=== PATIENT | female | born 1995 | race Two or more races ===

== ENCOUNTER 2025-02-22 12:00 | Inpatient (IN) | payer OTHER ==
[~2025-02-22] VITALS: Ht 162.6 cm; Wt 58.0 kg
--- NOTE | 2025-02-22 12:21 | ED.PDOC ---
GI ASSESSMENT HPI Comments 29 y/o F KYLIE, presents to the ED for CC of abdominal pain. EMS reports, patient is coming from home where she c/o suprapubic abdominal pain that radiates to her back with associated bright bloody stools x1day. 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 En route to the ED, patient was given 1g of Tylenol and 4mg of Zofran IV. Upon arrival patient, reports slight relief with medications now rating her pain a 4/10 on the pain scale. Patient denies dizziness, weakness, or urinary symptoms. No other symptoms or modifying factors are present at this time. Chief Complaint: Abdominal Pain Time Seen by MD: 12:00 Reviewed Notes: Nurses Notes, Missile Tracking Technician Notes, Medications, Allergies Allergies: Coded Allergies: Sumatriptan (Verified Allergy, Unknown, 02/22/25) Information Source: Patient, Emergency Med Personnel Mode of Arrival: EMS Timing: Days Duration: Since onset Prehospital treatment: None Vomitus: Watery Stool: Other (bloody) Severity: Moderate Recent: None Recent Hx of: None Pain Location: Suprapubic Modifying Factors: Nothing Associated sign and symptoms: Nausea, Vomiting, Abdominal Pain, Blood in Stool Past Medical History PAST MEDICAL HISTORY: Denies Surgical History: Cholecystectomy [employer] History: Denies all [employer] Hx Family History Family History: Family hx of DM, Family hx of Cancer Social History Smoker: Non-Smoker Alcohol: Denies ETOH Use Drugs: Marijuana Lives In: Home Constitutional: denies: chills, diaphoresis, fatigue, fever, malaise, sweats, weakness, others EENTM: denies: blurred vision, double vision, ear bleeding, ear discharge, ear drainage, ear pain, ear ringing, eye pain, eye redness, hearing loss, mouth pain, mouth swelling, nasal discharge, nose bleeding, nose congestion, nose pain, photophobia, tearing, throat pain, throat swelling, voice changes, others Respiratory: denies: cough, hemoptysis, orthopnea, SOB at rest, shortness of breath, SOB with excertion, stridor, wheezing, others Cardiovascular: denies: chest pain, dizzy spells, diaphoresis, Dyspnea on exertion, edema, irregular heart beat, left arm pain, lightheadedness, palpitations, PND, syncope, others Gastrointestinal: reports: abdominal pain, nausea, vomiting, others (bloody s tools); denies: abdomen distended, blood streaked bowels, constipated, diarrhea, dysphagia, difficulty swallowing, hematemesis, melena, poor appetite, poor fluid intake, rectal bleeding, rectal pain Genitourinary: denies: abnormal vagina bleeding, burning, dyspareunia, dysuria, flank pain, frequency, hematuria, incontinence, pain, , vagina discharge, urgency, others Neurological: denies: dizziness, fainting, headache, left sided numbness, left sided weakness, numbness, paresthesia, pre-existing deficit, right sided numbness, right sided weakness, seizure, speech problems, tingling, tremors, weakness, others Musculoskeletal: denies: back pain, gout, joint pain, joint swelling, muscle pa in, muscle stiffness, neck pain, others Integumetry: denies: bruises, change in color, change in hair/nails, dryness, laceration, lesions, lumps, rash, wounds, others Allergic/Immunocompromised: denies: Difficulty Healing, Frequent Infections, Hives, Itching, others Hematologic/Lymphatic: denies: anemia, blood clots, easy bleeding, easy bruising, swollen glands, others Endocrine: denies: excessive hunger, excessive sweating, excessive thirst, excessive urination, flushing, intolerance to cold, intolerance to heat, unexplained weight gain, unexplained weight loss, others Psychiatric: denies: anxiety, bipolar disorder, depression, hopeless, panic disorder, schizophrenia, sleepless, suicidal, others All Other Systems: Reviewed and Negative Physical Exam General Appearance: Moderate Distress HEENT: Pale Conjuntivae (L), Pale Conjuntivae (R), Pharynx Normal, TMs Normal Neck: Full Range of Motion, Non-Tender, Normal, Normal Inspection Respiratory: Chest Non-Tender, Lungs Clear, No Accessory Muscle Use, No Respiratory Distress, Normal Breath Sounds Cardiovascular: No Edema, No JVD, No Murmur, No Gallop, Normal Peripheral Pulses, Regular Rate/Rhythm Breast Exam: Deferred Gastrointestinal: No Organomegaly, No Pulsatile Mass, Normal Bowel Sounds, Soft, Suprapubic, Tenderness Genitalia: Deferred Pelvic: Deferred Rectal: Deferred Extremities: No calf tenderness, Normal capillary refill, Normal inspection, Normal range of motion, Non-tender, No pedal edema Musculoskeletal : Apperance: Normal Neurologic: Alert, onion tier II-XII nml as Tested, Motor Weakness, Normal Affect, Normal Mood, No Sensory Deficits Cerebellar Function: Normal Reflexes: Normal Skin: Dry, Normal Color, Warm Lymphatic: No Adenopathy Was a procedure done? Was a procedure done?: No GI differential Dx Differential Diagnosis: Diverticular disease, Gastritis/PUD, Gastroenteritis, GI hemorrhage, Inflammatory BD, Dehydration, Drug toxicity X-Ray, Labs, Meds, VS Vital Signs Date Time Temp Pulse Resp B/P (MAP) Pulse Ox O2 Delivery O2 Flow Rate FiO2 02/22/25 13:07 66 18 105/55 02/22/25 12:32 74 18 112/63 (79) 98 02/22/25 12:32 74 18 98 Room Air* 0 21 02/22/25 12:31 74 18 112/63 02/22/25 12:13 98.6 63 18 119/75 98 98.6 Lab Test 02/22/25 12:26 02/22/25 12:23 Range/Units White Blood Count 17.5 H 4.4-10.8 10^3/uL Red Blood Count 5.07 4.0-5.20 10^6/uL Hemoglobin 14.2 12.2-16.2 g/dL Hematocrit 42.7 36.0-46.0 % Mean Corpuscular Volume 84.1 80.0-100.0 fL Mean Corpuscular Hemoglobin 28.1 28.0-32.0 pg Mean Corpuscular Hemoglobin Concent 33.3 32.0-36.0 g/dL Red Cell Distribution Width 14.3 11.8-14.3 % Platelet Count 336 140-450 10^3/uL Mean Platelet Volume 8.1 6.9-10.8 fL Neutrophils (%) (Auto) 90.4 H 37.0-80.0 % Lymphocytes (%) (Auto) 4.0 L 10.0-50.0 % Monocytes (%) (Auto) 5.3 0.0-12.0 % Eosinophils (%) (Auto) 0.1 0.0-7.0 % Basophils (%) (Auto) 0.2 0.0-2.0 % Neutrophils # (Auto) 15.8 H 1.6-8.6 10 ^3/uL Lymphocytes # (Auto) 0.7 0.4-5.4 10 ^3/uL Monocytes # (Auto) 0.9 0-1.3 10 ^3/uL Eosinophils # (Auto) 0 0-0.8 10 ^3/uL Basophils # (Auto) 0 0-0.2 10 ^3/uL Nucleated Red Blood Cells 0.0 % Prothrombin Time 11.3 9.3-11.8 sec Prothrombin Time INR 1.07 0.9-1.15 Activated Partial Thromboplast Time 25.1 24.5-34.5 SEC Sodium Level 147 H 136-145 mmol/L Potassium Level 3.1 L 3.5-5.1 mmol/L Chloride Level 112 H 98-107 mmol/L Carbon Dioxide Level 17 L 20-31 mmol/L Anion Gap 18 H 5-15 Blood Urea Nitrogen 13 9-23 mg/dL Creatinine 1.04 H 0.550-1.02 mg/dL Glomerular Filtration Rate Calc 75 >90 mL/min BUN/Creatinine Ratio 12.5 10.0-20.0 Serum Glucose 142 H 74-106 mg/dL Calcium Level 8.7-10.4 mg/dL Total Bilirubin 0.7 0.2-1.0 mg/dL Aspartate Amino Transferase (AST) 14 13-40 U/L Alanine Aminotransferase (ALT) 11 7-40 U/L Alkaline Phosphatase 49 46-116 U/L Total Protein 7.6 5.7-8.2 g/dL Albumin 4.7 3.2-4.8 g/dL Urine Color Light-yellow Yellow Urine Clarity Clear Clear Urine pH 8.0 5.0-9.0 Urine Specific [place] 1.018 1.001-1.035 Urine Protein Negative Negative Urine Ketones 2+ H Negative Urine Blood 1+ H Negative /uL Urine Nitrite Negative Negative Urine Bilirubin Negative Negative Urine Urobilinogen Normal Negative mg/dL Urine Leukocyte Esterase Negative Negative /uL Urine RBC 5 0 - 4 /hpf Urine Microscopic WBC 9 H 0-5 /HPF Urine Squamous Epithelial Cells Few <5 /hpf Urine Bacteria None seen None Seen /hpf Urine Mucus Few None Seen Urine Glucose Normal Normal mg/dL Current Medications Medications (Trade) Dose Ordered Sig/Nohemy Route Start Time Stop Time Status Last Admin Morphine Sulfate 2 mg ONCE ONCE IV 02/22/25 12:15 02/22/25 12:16 DC 02/22/25 12:31 Sodium Chloride 500 ml @ 500 mls/hr Q1H ONCE IVB 02/22/25 12:15 02/22/25 13:14 DC 02/22/25 12:32 Prochlorperazine Edisylate (Compazine Inj) 10 mg ONCE ONCE IV 02/22/25 12:15 02/22/25 12:16 DC 02/22/25 12:32 CT ABD PEL: IMPRESSION: 1. A couple Punctate left renal calculi. No hydronephrosis. IV Hep-Lock was established The patient was given morphine IV push The patient was also given Compazine 10 mg IV push The patient has been bolused with a normal saline The patient's urine test is negative for infection [place] an [place] [address] The rest of the CBC is within normal limits The chemistry panel shows hypokalemia at 3.1 The patient is being given potassium at this time The patient will be admitted to the hospitalist Images Reviewed?: Images reviewed and evaluated by me Time of 1ST Reevaluation: 12:30 Reevaluation 1ST: Unchanged Patient Education/Counseling: Diagnosis, Treatment Family Education/Counseling: No Family Present SEPSIS Sepsis Screen Physician Orders Ct Ab Pel Wo Con-No Oral Or Iv (02/22/25 12:08) Heplock Iv (02/22/25 12:08) Vital Signs Date Time Temp Pulse Resp B/P (MAP) Pulse Ox O2 Delivery O2 Flow Rate FiO2 02/22/25 13:07 66 18 105/55 02/22/25 12:32 74 18 112/63 (79) 98 02/22/25 12:32 74 18 98 Room Air* 0 21 02/22/25 12:31 74 18 112/63 02/22/25 12:13 98.6 63 18 119/75 98 98.6 Laboratory Tests Test 02/22/25 12:26 White Blood Count 17.5 10^3/uL (4.4-10.8) H Medications Medications Dose Ordered Sig/Nohemy Route Start Time Stop Time Status Last Admin Dose Admin Morphine Sulfate 2 mg ONCE ONCE IV 02/22/25 12:15 02/22/25 12:16 DC 02/22/25 12:31 Prochlorperazine Edisylate 10 mg ONCE ONCE IV 02/22/25 12:15 02/22/25 12:16 DC 02/22/25 12:32 Sodium Chloride 500 ml @ 500 mls/hr Q1H ONCE IVB 02/22/25 12:15 02/22/25 13:14 DC 02/22/25 12:32 Departure 1 Departure Time of Disposition: 14:25 Impression: Primary Impression: Intractable abdominal pain Additional Impressions: Lower GI bleed Hypokalemia Disposition: ADMITTED INPATIENT Admit to: Med Surg Condition: Fair Critical Care Note Critical Care Time?: No Stability Stability form required: No Heart Score Heart Score: Heart Score Response (Comments) Value History N/A 0 EKG N/A 0 Age N/A 0 Risk Factors N/A 0 Troponin N/A 0 Total 0 I personally scribed for TOMMIE FUNG MD ([email or web address]) on 02/22/25 at 12:21. Electronically submitted by Stefanie Martinez ([email or web address]). I personally scribed for TOMMIE FUNG MD ([email or web address]) on 02/22/25 at 14:01. Electronically submitted by Stefanie Martinez ([email or web address]). TOMMIE FUNG MD Feb 22, 2025 12:21
[2025-02-22] MEDS: MORPHINE SULFATE 4 MG/ML SYR/VIAL IV ONE (12:31)
[2025-02-22 12:32] VITALS: PULSE 74; RESP 18; O2SAT 98
[2025-02-22] MEDS: SODIUM CHLORIDE 0.9% 500 ML IVB ONE (12:32)
[2025-02-22] MEDS: PROCHLORPERAZINE EDISYLATE 5 MG/ML 2ML VIAL IV ONE (12:32)
[2025-02-22 12:50] LABS: Hematocrit 42.7 % (36.0-46.0); Hemoglobin 14.2 g/dL (12.2-16.2); Mean Corpuscular Hemoglobin 28.1 pg (28.0-32.0); Mean Corpuscular Volume 84.1 fL (80.0-100.0); Nucleated Red Blood Cells % 0.0 %
[2025-02-22 13:05] LABS: INR 1.07 (0.9-1.15); Partial Thromboplastin Time 25.1 SEC (24.5-34.5); Prothrombin Time 11.3 sec (9.3-11.8)
[2025-02-22 13:07] LABS: Alanine Aminotransferase 11 U/L (7-40); Albumin 4.7 g/dL (3.2-4.8); Alkaline Phosphatase 49 U/L (46-116); Anion Gap 18 (5-15); BUN/Creatinine Ratio 12.5 (10.0-20.0); Blood Urea Nitrogen 13 mg/dL (9-23); Total Protein 7.6 g/dL (5.7-8.2)
[2025-02-22 13:08] LABS: Bilirubin, Total 0.7 mg/dL (0.2-1.0); Carbon Dioxide 17 mmol/L (20-31); Chloride 112 mmol/L (98-107); Glucose 142 mg/dL (74-106); Potassium 3.1 mmol/L (3.5-5.1); Sodium 147 mmol/L (136-145)
[2025-02-22 13:27] LABS: Urine Protein, UAD Negative (Negative)
--- NOTE | 2025-02-22 13:41 | DVH ---
EXAM DESCRIPTION: CT CT AB PEL WO CON-NO ORAL OR IV CLINICAL HISTORY: pain COMPARISON: None TECHNIQUE: CT abdomen and pelvis without IV contrast was performed. Coronal and sagittal MPR images were generated.CTDI/ DLP = 6.47 / 335.96 Dose reduction technique with one or more of the following methods was performed: Automated exposure control, adjustment of the mA and/or kV according to patient size, use of iterative reconstruction technique FINDINGS: Lower chest: Clear lung bases. Liver: Homogenous in attenuation. . Biliary: Status post cholecystectomy. No biliary ductal dilatation. Pancreas: No fat stranding or focal lesion. Spleen: Normal in size.. Adrenal glands: No nodularity. Kidneys: A couple Punctate left renal calculi. No hydroureteronephrosis. . Bladder: No bladder wall thickening. Reproductive organs: Normal. Bowel: No bowel wall thickening or dilatation. Normal appendix.. Peritoneum: No free fluid. No free air. Vessels: Normal caliber abdominal aorta. . Lymph nodes: No suspicious lymph nodes. Soft tissues: Unremarkable. . Osseous structures: No acute fracture or subluxation. No suspicious osseous lesions. IMPRESSION: 1. A couple Punctate left renal calculi. No hydronephrosis.
[2025-02-22] MEDS: SODIUM CHLORIDE 0.9% 1,000 ML IV ONE (15:36)
[2025-02-22] MEDS: POTASSIUM CHL 20MEQ/100ML 100 ML IV ONE (15:52)
[2025-02-22] MEDS ORDERED: NITROGLYCERIN 0.4 MG SL TAB SL PRN (16:30)
[2025-02-22] MEDS ORDERED: DOCUSATE SOD 100 MG CAP PO PRN (16:30)
[2025-02-22] MEDS ORDERED: ONDANSETRON HCL 4 MG/2 ML VIAL IV PRN (16:30)
[2025-02-22] MEDS ORDERED: MORPHINE SULFATE INJ 2 MG/ml SYRG IV PRN (16:30)
--- NOTE | 2025-02-22 17:03 | DVHHP2 ---
History of Present Illness History of Present Illness 29-year-old female with past medical history of gallbladder surgery and fibromyalgia, currently undergoing evaluation for lupus, presents with complaints of worsening abdominal pain. She reports that the abdominal pain began last night and progressed to severe suprapubic pain. The patient states she has vomited more than 10 times since onset and has had three episodes of bloody stool without clots. She denies any history of colonoscopy, chest pain, or shortness of breath. Labs in the ED were notable for leukocytosis with WBC of 17.5, sodium 147, potassium 3.1, chloride 111, CO2 17, anion gap 18, and creatinine 1.04. She was given IV fluids and potassium supplementation. UA was positive for ketones. CT scan of the pelvis revealed a left kidney stone without obstruction. Patient admits to nightly marijuana use. With these findings, the patient will be admitted for management of acute intractable vomiting, dehydration, lower gastrointestinal bleeding, and electrolyte abnormalities. She is hemodynamically stable and will be monitored with serial labs and supportive care. Past Medical History See HPI above Past Surgical History See HPI above Family History Reviewed, non-contributory to the management of this case. Past Social History Patient states he smoked marijuana every night denies drug or alcohol use Review of Systems Constitutional: No: Fever, Chills, Sweats, Weakness, Malaise, Other Eyes: No: Pain, Vision change, Conjunctivae inflammation, Eyelid inflammation, Other, Redness ENT: No: Ear pain, Ear discharge, Nose pain, Nose discharge, Nose congestion, Mouth pain, Mouth swelling, Throat pain, Throat swelling, Other Respiratory: No: Cough, Dry, Shortness of breath, SOB with excertion, Wheezing, Hemoptysis, Pleuritic Pain, Sputum, Wheezing, Other Cardiovascular: No: Chest Pain, Palpitations, Orthopnea, Paroxysmal Noc. Dyspnea, Edema, Lt Headedness, Other Gastrointestinal: Nausea, Vomiting, Abdominal Pain; No: Diarrhea, Constipation, Melena, Hematochezia, Other Genitourinary: No Dysuria, No Frequency, No Incontinence, No Hematuria, No Retention, No Other Musculoskeletal: No: other, neck pain, shoulder pain, arm pain, back pain, hand pain, leg pain, foot pain Skin: No: Rash, Lesions, Jaundice, Bruising, Other Neurological: No: Weakness, Numbness, Incoordination, Change in speech, Confusion, Seizures, Other Allergies: Coded Allergies: Shellfish Allergy (Verified Allergy, Unknown, 02/22/25) Sumatriptan (Verified Allergy, Unknown, 02/22/25) Exam Vital Signs Vital Signs Date Time Temp Pulse Resp B/P (MAP) Pulse Ox O2 Delivery O2 Flow Rate FiO2 02/22/25 16:16 98.1 77 14 94/54 (67) 99 98.1 02/22/25 12:32 Room Air* 0 21 General Appearance: Alert, Oriented X3, Cooperative, No acute distress HEENT: Atraumatic, PERRLA, EOMI, Mucous membr. moist/pink Respiratory: Clear to auscultation, Normal air movement Cardiovascular: Regular rate, Normal S1, Normal S2, No murmurs Abdominal: Normal bowel sounds, Soft, No tenderness, No hepatospenomegaly, No masses Extremities: No clubbing, No cyanosis, No edema, Normal pulses, No tenderness/swelling Skin: No rashes, No breakdown, No significant lesion Neuro: Normal gait, Normal speech, Strength at 5/5 X4 ext, Normal tone, Sensation intact, Cranial nerves 3-12 NL Psych/Mental Status: Mental status NL, Mood NL Labs/Xrays ct abd pelvis left renal stone, no hydronephrosis I reviewed labs, imaging CT scan abdomen pelvis, EKG and all diagnostic studies on this patient from ED records and the medical chart Labs Test 02/22/25 12:26 02/22/25 12:23 Range/Units White Blood Count 17.5 H 4.4-10.8 10^3/uL Red Blood Count 5.07 4.0-5.20 10^6/uL Hemoglobin 14.2 12.2-16.2 g/dL Hematocrit 42.7 36.0-46.0 % Mean Corpuscular Volume 84.1 80.0-100.0 fL Mean Corpuscular Hemoglobin 28.1 28.0-32.0 pg Mean Corpuscular Hemoglobin Concent 33.3 32.0-36.0 g/dL Red Cell Distribution Width 14.3 11.8-14.3 % Platelet Count 336 140-450 10^3/uL Mean Platelet Volume 8.1 6.9-10.8 fL Neutrophils (%) (Auto) 90.4 H 37.0-80.0 % Lymphocytes (%) (Auto) 4.0 L 10.0-50.0 % Monocytes (%) (Auto) 5.3 0.0-12.0 % Eosinophils (%) (Auto) 0.1 0.0-7.0 % Basophils (%) (Auto) 0.2 0.0-2.0 % Neutrophils # (Auto) 15.8 H 1.6-8.6 10 ^3/uL Lymphocytes # (Auto) 0.7 0.4-5.4 10 ^3/uL Monocytes # (Auto) 0.9 0-1.3 10 ^3/uL Eosinophils # (Auto) 0 0-0.8 10 ^3/uL Basophils # (Auto) 0 0-0.2 10 ^3/uL Nucleated Red Blood Cells 0.0 % Prothrombin Time 11.3 9.3-11.8 sec Prothrombin Time INR 1.07 0.9-1.15 Activated Partial Thromboplast Time 25.1 24.5-34.5 SEC Sodium Level 147 H 136-145 mmol/L Potassium Level 3.1 L 3.5-5.1 mmol/L Chloride Level 112 H 98-107 mmol/L Carbon Dioxide Level 17 L 20-31 mmol/L Anion Gap 18 H 5-15 Blood Urea Nitrogen 13 9-23 mg/dL Creatinine 1.04 H 0.550-1.02 mg/dL Glomerular Filtration Rate Calc 75 >90 mL/min BUN/Creatinine Ratio 12.5 10.0-20.0 Serum Glucose 142 H 74-106 mg/dL Calcium Level 8.7-10.4 mg/dL Total Bilirubin 0.7 0.2-1.0 mg/dL Aspartate Amino Transferase (AST) 14 13-40 U/L Alanine Aminotransferase (ALT) 11 7-40 U/L Alkaline Phosphatase 49 46-116 U/L Total Protein 7.6 5.7-8.2 g/dL Albumin 4.7 3.2-4.8 g/dL Urine Color Light-yellow Yellow Urine Clarity Clear Clear Urine pH 8.0 5.0-9.0 Urine Specific [place] 1.018 1.001-1.035 Urine Protein Negative Negative Urine Ketones 2+ H Negative Urine Blood 1+ H Negative /uL Urine Nitrite Negative Negative Urine Bilirubin Negative Negative Urine Urobilinogen Normal Negative mg/dL Urine Leukocyte Esterase Negative Negative /uL Urine RBC 5 0 - 4 /hpf Urine Microscopic WBC 9 H 0-5 /HPF Urine Squamous Epithelial Cells Few <5 /hpf Urine Bacteria None seen None Seen /hpf Urine Mucus Few None Seen Urine Glucose Normal Normal mg/dL SEPSIS Sepsis Screen Date sepsis recognized/suspect: Feb 22, 2025 Time Sepsis recognized/suspect: 1558 Recent Procedure: No On Antibiotic Therapy: No Respiratory Rate >20: No Heart Rate >90: No Temp<36 C (96.8 F) or >38.3 C: No SBP <90 or MAP <65 mmHG: No New Acute Mental Status Change: No Is the patient on CPAP, BIPAP,: No Physician Orders Ct Ab Pel Wo Con-No Oral Or Iv (02/22/25 12:08) Heplock Iv (02/22/25 12:08) Potassium Chl 20meq/100ml (02/22/25 14:30) Sodium Chloride 0.9% (02/22/25 15:45) Admit (02/22/25 16:22) Allergies (02/22/25 16:22) Code Status (02/22/25 16:22) Temazepam (Restoril) (02/22/25 16:30) Ondansetron Hcl (Zofran) (02/22/25 16:30) Docusate Sodium Capsule (Colace Capsule) (02/22/25 16:30) Complete Blood Count (02/23/25 04:00) Comprehensive Metabolic Panel (02/23/25 04:00) Condition: Stable (02/22/25 16:22) BRP (02/22/25 16:22) Morphine Sulfate Injection (02/22/25 16:30) Sequential Compression Device (02/22/25 ) Nitroglycerin Sublingual (Ntrostat Subli (02/22/25 16:30) Stat Ekg For Chest Pain (02/22/25 16:22) Notify Md Of Changes From Base (02/22/25 16:22) Global Chief Experience Officer For 24 Hours (02/22/25 16:22) Emergency Dysrhythmia Protocol (02/22/25 16:22) Rhythm Strips Once Every Shift (02/22/25 16:22) Oxygen By Nasal Cannula (02/22/25 16:22) 1/2 Ns W Potassium 20meq (02/22/25 16:30) Tamsulosin Hydrochloride (Flomax) (02/22/25 16:30) Tamsulosin Hydrochloride (Flomax) (02/22/25 18:00) Ceftriaxone Ivpb Rocephin (02/23/25 09:00) Ceftriaxone Ivpb Rocephin (02/22/25 16:30) Vital Signs Date Time Temp Pulse Resp B/P (MAP) Pulse Ox O2 Delivery O2 Flow Rate FiO2 02/22/25 16:16 98.1 77 14 94/54 (67) 99 98.1 02/22/25 15:32 69 14 81/40 (54) 99 02/22/25 13:07 66 18 105/55 02/22/25 12:32 74 18 112/63 (79) 98 02/22/25 12:32 74 18 98 Room Air* 0 21 02/22/25 12:31 74 18 112/63 02/22/25 12:13 98.6 63 18 119/75 98 98.6 Laboratory Tests Test 02/22/25 12:26 White Blood Count 17.5 10^3/uL (4.4-10.8) H Medications Medications Dose Ordered Sig/Nohemy Route Start Time Stop Time Status Last Admin Dose Admin Morphine Sulfate 2 mg ONCE ONCE IV 02/22/25 12:15 02/22/25 12:16 DC 02/22/25 12:31 2 MG Potassium Chloride 100 ml @ 50 mls/hr ONCE ONCE IV 02/22/25 14:30 02/22/25 16:29 02/22/25 15:52 50 MLS/HR Prochlorperazine Edisylate 10 mg ONCE ONCE IV 02/22/25 12:15 02/22/25 12:16 DC 02/22/25 12:32 10 MG Sodium Chloride 500 ml @ 500 mls/hr Q1H ONCE IVB 02/22/25 12:15 02/22/25 13:14 DC 02/22/25 12:32 500 MLS/HR Sodium Chloride 1,000 ml @ 1,000 mls/hr Q1H ONCE IV 02/22/25 15:45 02/22/25 16:44 02/22/25 15:36 1,000 MLS/HR Assessment/Plan Assessment/Plan 29-year-old female admitted for acute intractable vomiting, acute lower GI bleeding, acute dehydration, and electrolyte abnormalities (hypernatremia, hypokalemia), likely secondary to severe GI fluid loss. Acute intractable vomiting can be possible marijuana use (nightly use) Ongoing nausea and vomiting >10 episodes Administer Zofran IV PRN Continue IV hydration with 0.45 % normal saline + 20 mEq KCl Monitor electrolytes closely Acute severe dehydration Clinical signs with elevated sodium and low CO2 pt was provided bolus iv in ED Continue aggressive IV fluids (1/2 NS + 20 KCl) Monitor I/Os and BMP Acute lower GI bleeding, mild Reports 3 episodes of bloody stool without clots H&H currently stable Monitor Hgb/Hct q6h No colonoscopy indicated unless worsening or instability ordered protonix for now acute Leukocytosis (WBC 17.5) Likely reactive from severe dehydration No signs of infection Will send urine and blood cultures 2 No antibiotics at this time Acute hypernatremia (Na 147) Likely secondary to dehydration Correct gradually with IV fluids Monitor serum sodium for am acute Hypokalemia (K 3.1) Potassium replacement initiated Continue supplementation and recheck levels acute Left kidney stone without obstruction CT abdomen/pelvis confirmed Pain controlled with PRN medications No urologic intervention needed at this time History of fibromyalgia Continue outpatient management No acute flare reported during admission Nightly marijuana use Admits to daily use No withdrawal symptoms reported Pediatrician Active Practice on possible cannabinoid hyperemesis syndrome if vomiting recurs chronic problems Fibromyalgia History of cholecystectomy Possible lupus (pending workup) Marijuana use disorder FEN / PPx Fluids: IV NS with 20 mEq KCl Electrolytes: Monitor BMP Nutrition: regular diet DVT Prophylaxis: SCDs while inpatient GI Prophylaxis: protonix Disposition Admit to medicine service/Consider GI consult if bleeding worsens/Continue supportive care, pain management, and IV fluid/electrolyte correction Plan discussed with: Patient My Orders Orders - ALYSA OATES DNP Procedure Category Date Status Time Admit ADMIT 02/22/25 Verified 16:22 Allergies MARNIE 02/22/25 Verified 16:22 Code Status CODE 02/22/25 Verified 16:22 Temazepam (Restoril) PHA 02/22/25 Verified 16:30 Ondansetron Hcl PHA 02/22/25 Verified (Zofran) 16:30 Docusate Sodium PHA 02/22/25 Verified Capsule (Colace 16:30 Complete Blood Count LAB 02/23/25 Verified 04:00 Comprehensive LAB 02/23/25 Verified Metabolic Panel 04:00 Condition: Stable MARNIE 02/22/25 Verified 16:22 BRP MARNIE 02/22/25 Verified 16:22 Morphine Sulfate PHA 02/22/25 Verified Injection 16:30 Sequential MARNIE 02/22/25 Verified Compression Device Nitroglycerin PHA 02/22/25 Verified Sublingual (Ntrostat 16:30 Stat Ekg For Chest [facility] 02/22/25 Verified Pain 16:22 Notify Md Of Changes [facility] 02/22/25 Verified From Base 16:22 Global Chief Experience Officer For [facility] 02/22/25 Verified 24 Hours 16:22 Emergency Dysrhythmia [facility] 02/22/25 Verified Protocol 16:22 Rhythm Strips Once [facility] 02/22/25 Verified Every Shift 16:22 Oxygen By Nasal RT 02/22/25 Verified Cannula 16:22 1/2 Ns W Potassium [facility]A 02/22/25 Verified 20meq 16:30 Tamsulosin PHA 02/22/25 Verified Hydrochloride (Flomax) 16:30 Tamsulosin PHA 02/22/25 Verified Hydrochloride (Flomax) 18:00 Ceftriaxone Ivpb PHA 02/23/25 Verified Rocephin 09:00 Ceftriaxone Ivpb PHA 02/22/25 Verified Rocephin 16:30 Date of Service: Feb 22, 2025 Billing Provider: ALYSA OATES DNP Common Visit Codes: [id number] INP/OBS CARE (HIGH) ALYSA OATES DNP Feb 22, 2025 17:03
[2025-02-22] MEDS: TAMSULOSIN HYDROCHLORIDE 0.4 MG CAP PO ONE (17:11)
[2025-02-22] MEDS: PANTOPRAZOLE 40 MG/10 ML VIAL INJ IV ONE (17:12)
[2025-02-22] MEDS: SOD CHL 0.45% WITH 20MEQ KCL 1,000 ML IV ONE (17:26)
[2025-02-22 18:10] LABS: Hematocrit 38.2 % (36.0-46.0); Hemoglobin 12.6 g/dL (12.2-16.2)
[2025-02-22] MEDS: ACETAMINOPHEN 325 MG TAB PO PRN (18:57)
[2025-02-22 19:23] VITALS: PULSE 80; O2SAT 98
[2025-02-23 00:32] LABS: Hematocrit 37.2 % (36.0-46.0); Hemoglobin 12.1 g/dL (12.2-16.2)
[2025-02-23 01:35] VITALS: BP 98/62; PULSE 82; RESP 18; TEMP 98.6; O2SAT 99
[2025-02-23 05:00] VITALS: BP 101/65; PULSE 88; RESP 18; TEMP 98.5; O2SAT 98
[2025-02-23 06:33] LABS: Hematocrit 39.0 % (36.0-46.0); Hemoglobin 12.6 g/dL (12.2-16.2); Mean Corpuscular Hemoglobin 28.0 pg (28.0-32.0); Mean Corpuscular Volume 86.9 fL (80.0-100.0); Nucleated Red Blood Cells % 0.1 %
[2025-02-23 06:50] LABS: Calcium 8.9 mg/dL (8.7-10.4); Carbon Dioxide 23 mmol/L (20-31)
[2025-02-23 06:51] LABS: Albumin 3.8 g/dL (3.2-4.8); Anion Gap 9 (5-15); BUN/Creatinine Ratio 12.0 (10.0-20.0); Blood Urea Nitrogen 9 mg/dL (9-23); Glucose 84 mg/dL (74-106); Potassium 3.7 mmol/L (3.5-5.1); Sodium 143 mmol/L (136-145); Total Protein 6.2 g/dL (5.7-8.2)
[2025-02-23 06:52] LABS: Bilirubin, Total 0.6 mg/dL (0.2-1.0)
[2025-02-23 07:07] LABS: Alanine Aminotransferase 9 U/L (7-40); Alkaline Phosphatase 42 U/L (46-116); Chloride 111 mmol/L (98-107)
[2025-02-23 09:00] VITALS: BP 118/84; PULSE 73; RESP 18; TEMP 98.5; O2SAT 100
[2025-02-23] MEDS: PANTOPRAZOLE 40 MG/10 ML VIAL INJ IV SCH (09:32)
[2025-02-23 12:12] LABS: Hematocrit 39.2 % (36.0-46.0); Hemoglobin 12.9 g/dL (12.2-16.2)
--- NOTE | 2025-02-23 12:38 | DVHPN2 ---
Reviewed: Care Plan, H&P, Labs, Medications, Previous Orders, Radiology Changes from previous H/P or p: No Changes Eyes: No Pain, No Vision change, No Conjunctivae inflammation, No Eyelid inflammation, No Other, No Redness ENT: No Ear pain, No Ear discharge, No Nose pain, No Nose discharge, No Nose congestion, No Mouth pain, No Mouth swelling, No Throat pain, No Throat swelling, No Other Cardiovascular: No Chest Pain, No Palpitations, No Orthopnea, No Paroxysmal Noc. Dyspnea, No Edema, No Lt Headedness, No Other Respiratory: No Cough, No Dry, No Shortness of breath, No SOB with excertion, No Wheezing, No Hemoptysis, No Pleuritic Pain, No Sputum, No Other Gastrointestinal: Nausea, Vomiting, Abdominal Pain; No Diarrhea, No Constipation, No Melena, No Hematochezia, No Other Genitourinary: No Dysuria, No Frequency, No Incontinence, No Hematuria, No Retention, No Other Musculoskeletal: No other, No neck pain, No shoulder pain, No arm pain, No back pain, No hand pain, No leg pain, No foot pain Skin: No Rash, No Lesions, No Jaundice, No Bruising, No Other Objective Vitals Vital Signs Date Time Temp Pulse Resp B/P (MAP) Pulse Ox O2 Delivery O2 Flow Rate FiO2 02/23/25 09:00 98.5 73 18 118/84 (95) 100 98.5 02/23/25 08:00 Room Air* 0 21 Intake/Output Intake and Output 02/23/25 07:00 Intake Total 2280 ml Output Total 0 ml Balance 2280 ml Intake Oral 200 ml IV Total 2080 ml Output Urine Total 0 ml Medications Current Medications Medications Dose Ordered Sig/Nohemy Route Start Time Stop Time Status Last Admin Dose Admin Temazepam 15 mg QHSP PRN PO 02/22/25 16:30 Ondansetron HCl 4 mg Q4HP PRN IV 02/22/25 16:30 Docusate Sodium 100 mg BIDPRN PRN PO 02/22/25 16:30 Morphine Sulfate 2 mg Q4HPRN PRN IV 02/22/25 16:30 Nitroglycerin 0.4 mg Q5MINP PRN SL 02/22/25 16:30 Tamsulosin HCl 0.4 mg QPM PO 02/23/25 18:00 Ceftriaxone Sodium 50 ml @ 100 mls/hr DAILY@09 IV 02/23/25 09:00 02/23/25 09:32 100 MLS/HR Pantoprazole Sodium 40 mg DAILY IV 02/23/25 10:00 02/23/25 09:32 40 MG Acetaminophen 650 mg Q6HP PRN PO 02/22/25 18:15 02/23/25 07:34 650 MG Laboratory Results Laboratory Tests 02/23/25 05:27 02/23/25 11:53 Chemistry Test 02/23/25 05:27 Albumin 3.8 g/dL (3.2-4.8) Calcium Level 8.9 mg/dL (8.7-10.4) Total Protein 6.2 g/dL (5.7-8.2) LFT Test 02/23/25 05:27 Alanine Aminotransferase (ALT) 9 U/L (7-40) Alkaline Phosphatase 42 U/L (46-116) L Aspartate Amino Transferase (AST) 16 U/L (13-40) Total Bilirubin 0.6 mg/dL (0.2-1.0) Urinalysis Test 02/22/25 12:23 Urine Color Light-yellow (Yellow) Urine Clarity Clear (Clear) Urine pH 8.0 (5.0-9.0) Urine Specific [place] 1.018 (1.001-1.035) Urine Protein Negative (Negative) Urine Ketones 2+ (Negative) H Urine Blood 1+ /uL (Negative) H Urine Nitrite Negative (Negative) Urine Bilirubin Negative (Negative) Urine Urobilinogen Normal mg/dL (Negative) Urine Leukocyte Esterase Negative /uL (Negative) Urine RBC 5 /hpf (0 - 4) Urine Microscopic WBC 9 /HPF (0-5) H Urine Squamous Epithelial Cells Few /hpf (<5) Urine Bacteria None seen /hpf (None Seen) Urine Mucus Few (None Seen) Urine Glucose Normal mg/dL (Normal) Labs and/or images reviewed: Labs reviewed by me, Image(s) reviewed by me Assessment/Plan Assessment/Plan Secondary to urinary tract infection Acute urinary tract infection: Urine cultures Rocephin Acute intractable nausea and vomiting : GI consult for Dr. Nikita Vergara CVOrtega dehydration Mild GI bleed Mild hypernatremia sodium 147 Hypokalemia potassium 3.1 History of fibromyalgia Chronic current marijuana abuse: Counseling, check urine drug screen Ruled out : Beta HCG pending Plan discussed with: Patient Date of Service: Feb 23, 2025 Billing Provider: GARRETT MARTINEZ MD Common Visit Codes: [id number] INP/OBS CARE(HIGH) GARRETT MARTINEZ MD Feb 23, 2025 12:38
[2025-02-23 13:00] VITALS: BP 111/72; PULSE 65; RESP 17; TEMP 98.2; O2SAT 100
[2025-02-23 14:42] LABS: Amphetamine Screen, Urine Neg (NEGATIVE); Barbiturate Scree,Urine Neg (NEGATIVE); Benzodiazephine Screen, Urine Neg (NEGATIVE); Cannabinoid Screen, Urine Pos (NEGATIVE); Cocaine Screen, Urine Neg (NEGATIVE); Opiate Scree,Urine Neg (NEGATIVE); Phencyclidine Screen, Urine Neg (NEGATIVE)
[2025-02-23 17:00] VITALS: BP 109/79; PULSE 63; RESP 17; TEMP 98.3; O2SAT 99
[2025-02-23 18:16] LABS: Hematocrit 38.0 % (36.0-46.0); Hemoglobin 12.6 g/dL (12.2-16.2)
[2025-02-23] MEDS: TAMSULOSIN HYDROCHLORIDE 0.4 MG CAP PO SCH (19:07)
[2025-02-23 21:00] VITALS: BP 113/77; PULSE 67; RESP 16; TEMP 98.6; O2SAT 98
[2025-02-23] MEDS: TEMAZEPAM 15 MG CAP PO PRN (21:40)
[2025-02-24 04:42] VITALS: BP 101/76; PULSE 62; RESP 16; TEMP 98.1; O2SAT 98
[2025-02-24 08:00] VITALS: PULSE 84; RESP 18; O2SAT 98
[2025-02-24] MEDS ORDERED: CIPR-173 PO (08:13)
--- NOTE | 2025-02-24 08:15 | DVHPN2 ---
Reviewed: Care Plan, H&P, Labs, Medications, Previous Orders, Radiology Changes from previous H/P or p: No Changes Eyes: No Pain, No Vision change, No Conjunctivae inflammation, No Eyelid inflammation, No Other, No Redness ENT: No Ear pain, No Ear discharge, No Nose pain, No Nose discharge, No Nose congestion, No Mouth pain, No Mouth swelling, No Throat pain, No Throat swelling, No Other Cardiovascular: No Chest Pain, No Palpitations, No Orthopnea, No Paroxysmal Noc. Dyspnea, No Edema, No Lt Headedness, No Other Respiratory: No Cough, No Dry, No Shortness of breath, No SOB with excertion, No Wheezing, No Hemoptysis, No Pleuritic Pain, No Sputum, No Other Gastrointestinal: Nausea, Vomiting, Abdominal Pain; No Diarrhea, No Constipation, No Melena, No Hematochezia, No Other Genitourinary: No Dysuria, No Frequency, No Incontinence, No Hematuria, No Retention, No Other Musculoskeletal: No other, No neck pain, No shoulder pain, No arm pain, No back pain, No hand pain, No leg pain, No foot pain Skin: No Rash, No Lesions, No Jaundice, No Bruising, No Other Objective Vitals Vital Signs Date Time Temp Pulse Resp B/P (MAP) Pulse Ox O2 Delivery O2 Flow Rate FiO2 02/24/25 04:42 98.1 62 16 101/76 (84) 98 98.1 02/23/25 20:00 Room Air* 0 21 Intake/Output Intake and Output 02/24/25 07:00 Intake Total 1610 ml Balance 1610 ml Intake Oral 1560 ml IV Total 50 ml # Voids 7 # Bowel Movements 3 Medications Current Medications Medications Dose Ordered Sig/Nohemy Route Start Time Stop Time Status Last Admin Dose Admin Temazepam 15 mg QHSP PRN PO 02/22/25 16:30 02/23/25 21:40 15 MG Ondansetron HCl 4 mg Q4HP PRN IV 02/22/25 16:30 Docusate Sodium 100 mg BIDPRN PRN PO 02/22/25 16:30 Morphine Sulfate 2 mg Q4HPRN PRN IV 02/22/25 16:30 Nitroglycerin 0.4 mg Q5MINP PRN SL 02/22/25 16:30 Tamsulosin HCl 0.4 mg QPM PO 02/23/25 18:00 02/23/25 19:07 0.4 MG Ceftriaxone Sodium 50 ml @ 100 mls/hr DAILY@09 IV 02/23/25 09:00 02/23/25 09:32 100 MLS/HR Pantoprazole Sodium 40 mg DAILY IV 02/23/25 10:00 02/23/25 09:32 40 MG Acetaminophen 650 mg Q6HP PRN PO 02/22/25 18:15 02/23/25 21:40 650 MG Sertraline HCl 25 mg DAILY PO 02/24/25 10:00 Laboratory Results Laboratory Tests 02/23/25 05:27 02/23/25 17:57 Urinalysis Test 02/22/25 12:23 Urine Color Light-yellow (Yellow) Urine Clarity Clear (Clear) Urine pH 8.0 (5.0-9.0) Urine Specific [place] 1.018 (1.001-1.035) Urine Protein Negative (Negative) Urine Ketones 2+ (Negative) H Urine Blood 1+ /uL (Negative) H Urine Nitrite Negative (Negative) Urine Bilirubin Negative (Negative) Urine Urobilinogen Normal mg/dL (Negative) Urine Leukocyte Esterase Negative /uL (Negative) Urine RBC 5 /hpf (0 - 4) Urine Microscopic WBC 9 /HPF (0-5) H Urine Squamous Epithelial Cells Few /hpf (<5) Urine Bacteria None seen /hpf (None Seen) Urine Mucus Few (None Seen) Urine Glucose Normal mg/dL (Normal) Labs and/or images reviewed: Labs reviewed by me, Image(s) reviewed by me Assessment/Plan Assessment/Plan Sepsis Secondary to urinary tract infection Acute urinary tract infection: Urine cultures Rocephin Acute intractable nausea and vomiting secondary to marijuana abuse: Counseling: Acute dehydration Mild GI bleed Mild hypernatremia sodium 147 Hypokalemia potassium 3.1 History of fibromyalgia Chronic current marijuana abuse: Counseling, check urine drug screen ruled out Patient feels better and wants to go home TELLY Gaines at bedside Plan discussed with: Patient My Orders Orders - GARRETT MARTINEZ MD Procedure Category Date Status Time Sertraline Hcl PHA 02/24/25 In Process (Zoloft) 10:00 Date of Service: Feb 24, 2025 Billing Provider: GARRETT MARTINEZ MD Common Visit Codes: [id number] INP/OBS CARE(HIGH) GARRETT MARTINEZ MD Feb 24, 2025 08:15
--- NOTE | 2025-02-24 08:19 | DVHDS2 ---
Discharge Summary Date of Admission Feb 22, 2025 at 16:22 Date of Discharge: Feb 24, 2025 Admitting Diagnosis Nausea and vomiting Wounds: None Labs/Diagnostic Data: Laboratory Results Test 02/23/25 17:57 02/23/25 05:27 02/22/25 14:29 02/22/25 12:26 Hemoglobin 12.6 g/dL (12.2-16.2) Hematocrit 38.0 % (36.0-46.0) White Blood Count 8.9 10^3/uL (4.4-10.8) Red Blood Count 4.49 10^6/uL (4.0-5.20) Mean Corpuscular Volume 86.9 fL (80.0-100.0) Mean Corpuscular Hemoglobin 28.0 pg (28.0-32.0) Mean Corpuscular Hemoglobin Concent 32.2 g/dL (32.0-36.0) Red Cell Distribution Width 14.5 % (11.8-14.3) Platelet Count 268 10^3/uL (140-450) Mean Platelet Volume 8.0 fL (6.9-10.8) Neutrophils (%) (Auto) 71.4 % (37.0-80.0) Lymphocytes (%) (Auto) 22.1 % (10.0-50.0) Monocytes (%) (Auto) 5.9 % (0.0-12.0) Eosinophils (%) (Auto) 0.3 % (0.0-7.0) Basophils (%) (Auto) 0.3 % (0.0-2.0) Neutrophils # (Auto) 6.4 10 ^3/uL (1.6-8.6) Lymphocytes # (Auto) 2.0 10 ^3/uL (0.4-5.4) Monocytes # (Auto) 0.5 10 ^3/uL (0-1.3) Eosinophils # (Auto) 0 10 ^3/uL (0-0.8) Basophils # (Auto) 0 10 ^3/uL (0-0.2) Nucleated Red Blood Cells 0.1 % Sodium Level 143 mmol/L (136-145) Potassium Level 3.7 mmol/L (3.5-5.1) Chloride Level 111 mmol/L (98-107) Carbon Dioxide Level 23 mmol/L (20-31) Anion Gap 9 (5-15) Blood Urea Nitrogen 9 mg/dL (9-23) Creatinine 0.75 mg/dL (0.550-1.02) Glomerular Filtration Rate Calc 111 mL/min (>90) BUN/Creatinine Ratio 12.0 (10.0-20.0) Serum Glucose 84 mg/dL (74-106) Calcium Level 8.9 mg/dL (8.7-10.4) Total Bilirubin 0.6 mg/dL (0.2-1.0) Aspartate Amino Transferase (AST) 16 U/L (13-40) Alanine Aminotransferase (ALT) 9 U/L (7-40) Alkaline Phosphatase 42 U/L (46-116) Total Protein 6.2 g/dL (5.7-8.2) Albumin 3.8 g/dL (3.2-4.8) Beta HCG, Quantitative 1.1 mIU/mL (1.5-4.2) Urine Opiates Screen Neg (NEGATIVE) Urine Fentanyl Screen Neg (NEGATIVE) Urine Barbiturates Screen Neg (NEGATIVE) Urine Phencyclidine Screen Neg (NEGATIVE) Urine Amphetamines Screen Neg (NEGATIVE) Urine Benzodiazepines Screen Neg (NEGATIVE) Urine Cocaine Screen Neg (NEGATIVE) Urine Cannabinoids Screen Pos (NEGATIVE) Prothrombin Time 11.3 sec (9.3-11.8) Prothrombin Time INR 1.07 (0.9-1.15) Activated Partial Thromboplast Time 25.1 SEC (24.5-34.5) Test 02/22/25 12:23 Urine Color Light-yellow (Yellow) Urine Clarity Clear (Clear) Urine pH 8.0 (5.0-9.0) Urine Specific [place] 1.018 (1.001-1.035) Urine Protein Negative (Negative) Urine Ketones 2+ (Negative) Urine Blood 1+ /uL (Negative) Urine Nitrite Negative (Negative) Urine Bilirubin Negative (Negative) Urine Urobilinogen Normal mg/dL (Negative) Urine Leukocyte Esterase Negative /uL (Negative) Urine RBC 5 /hpf (0 - 4) Urine Microscopic WBC 9 /HPF (0-5) Urine Squamous Epithelial Cells Few /hpf (<5) Urine Bacteria None seen /hpf (None Seen) Urine Mucus Few (None Seen) Urine Glucose Normal mg/dL (Normal) Other Laboratory Tests 02/23/25 17:57 02/23/25 05:27 Brief Hx & Hospital Course: 29-year-old female came in complaining of nausea and vomiting chronic current marijuana abuse counseled found to have UTI treated with Rocephin urine cultures pending CT abdomen pelvis without contrast negative. ruled out. Patient feels better afebrile no symptoms and requesting to be discharged home discharged home on Cipro for UTI Consults/Reason for consult GI consult pending Operations or Procedures CT abdomen pelvis without contrast Condition at Discharge: Fair Final Diagnosis/Problems List Sepsis Secondary to urinary tract infection Acute urinary tract infection: Urine cultures Rocephin Acute intractable nausea and vomiting secondary to marijuana abuse: Counseling: Acute dehydration Mild GI bleed Mild hypernatremia sodium 147 Hypokalemia potassium 3.1 History of fibromyalgia Chronic current marijuana abuse: Counseling, check urine drug screen ruled out Discharge Disposition: Home Discharge Instruct/Medications Diet: Regular Activity: Light activity Follow Up/Referral: Stop using marijuana Follow up with the primary Dr Medications: Cipro Transmitted to pharmacy Scheduled Ciprofloxacin Hcl (Cipro), 1 TAB PO BID 35 (Time taken for discharge summary 35 minutes) Discharge Statement: "Patient was advised to return to the ER or call 911 if any headaches, dizziness, shortness of breath, chest pain, abdominal pain, bleeding, fevers, or worsening of medical condition. Patient was counseled about treatment plan, medications, possible side effects, patientverbalized understanding. All questions were answered to the best of my ability. This discharge took greater then 30 minutes in planning, reviewing documentation, counseling the patient, and discussing with other team members." ASSESSMENT ASSESSMENT Hospital Course Improved Assessment Sepsis Secondary to urinary tract infection Acute urinary tract infection: Urine cultures Rocephin Acute intractable nausea and vomiting secondary to marijuana abuse: Counseling: Acute dehydration Mild GI bleed Mild hypernatremia sodium 147 Hypokalemia potassium 3.1 History of fibromyalgia Chronic current marijuana abuse: Counseling, check urine drug screen ruled out Date of Service: Feb 24, 2025 Billing Provider: GARRETT MARTINEZ MD Common Visit Codes: [id number] DISCH DAY >30min GARRETT MARTINEZ MD Feb 24, 2025 08:19
[2025-02-24] MEDS: SERTRALINE HCL 50 MG TAB PO SCH (08:42)
[2025-02-24 09:00] VITALS: BP_SYST 105; BP_SYST 111; BP_DIAS 46; BP_DIAS 76; PULSE 66; PULSE 84; RESP 16; RESP 18; TEMP 97.6; TEMP 97.7; O2SAT 100; O2SAT 98
== END 2025-02-24 12:00 | disposition home or self-care (01) | DRG 872 ==
LOC: ER 12:00 → EDBD 12:00 → OVERFLOW 16:22 → CENTRAL 02-23 01:35
PROVIDERS: ADMIT Family Medicine; ATTEND Family Medicine
DX: A41.9 Sepsis, unspecified organism (principal); K92.2 Gastrointestinal hemorrhage, unspecified; E87.0 Hyperosmolality and hypernatremia; N39.0 Urinary tract infection, site not specified; F12.10 Cannabis abuse, uncomplicated; E86.0 Dehydration; N20.0 Calculus of kidney; E87.6 Hypokalemia; M79.7 Fibromyalgia; Z91.013 Allergy to seafood; Z83.3 Family history of diabetes mellitus; Z80.9 Family history of malignant neoplasm, unspecified; Z90.49 Acquired absence of other specified parts of digestive tract; Z71.51 Drug abuse counseling and surveillance of drug abuser
CPT/HCPCS: 36415; 74176; 80053; 80307; 81001; 84702; 85014; 85018; 85025; 85610; 85730; 96365; G0378; J2470; J3480

== ENCOUNTER 2025-02-25 14:14 | Inpatient (IN) | payer OTHER ==
[~2025-02-25] VITALS: Ht 162.6 cm; Wt 48.1 kg
[~2025-02-25 14:14] MED LIST: CIPR-173 PO
--- NOTE | 2025-02-25 16:04 | ED.PDOC ---
General HPI Comments 29 y/o F, with PMHx of UTI's and kidney stones presents to the ED for CC of flank pain. Patient states, she has been experiencing bilateral flank pain with associated bilateral hand and arm numbness onset, today (02/25/25). Patient reports, being DC from [facility] for Dx: sepsis secondary to a UTI yesterday (02/24/25) however, symptoms have not ceased. Patient further relays, having a syncopal episode and being unable to recalling events prior to episode. Patient denies fever, chills, hematuria, nausea, vomiting, or palpitations. No other symptoms or modifying factors are present at this time. Chief Complaint: Flank Pain Time Seen by MD: 16:00 Reviewed notes: Nurses Notes, Medications, Allergies Allergies: Coded Allergies: Shellfish Allergy (Verified Allergy, Unknown, 02/22/25) Sumatriptan (Verified Allergy, Unknown, 02/22/25) Home Meds Active Scripts Ciprofloxacin Hcl (Cipro) 500 Mg Tab, 1 TAB PO BID, #14 TAB Prov:GARRETT MARTINEZ MD 02/24/25 Information Source: Patient Mode of Arrival: EMS Severity: Moderate Timing: Days Duration: Days Prehospital treatment: Other (Antibiotics) History of: UTI, Kidney stone Location: (R) Flank, (L)Flank Modifying factors: None associated signs and symptoms: Flank Pain Past Medical History PAST MEDICAL HISTORY: Denies Surgical History: Cholecystectomy 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: Denies all 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 [employer]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 Hx Family History Family History: Family hx of DM, Family hx of Cancer Social History Smoker: Non-Smoker Alcohol: Denies ETOH Use Drugs: Marijuana Lives In: Home Constitutional: denies: chills, diaphoresis, fatigue, fever, malaise, sweats, weakness, others EENTM: denies: blurred vision, double vision, ear bleeding, ear discharge, ear drainage, ear pain, ear ringing, eye pain, eye redness, hearing loss, mouth pain, mouth swelling, nasal discharge, nose bleeding, nose congestion, nose pain, photophobia, tearing, throat pain, throat swelling, voice changes, others Respiratory: denies: cough, hemoptysis, orthopnea, SOB at rest, shortness of breath, SOB with excertion, stridor, wheezing, others Cardiovascular: denies: chest pain, dizzy spells, diaphoresis, Dyspnea on exertion, edema, irregular heart beat, left arm pain, lightheadedness, palpitations, PND, syncope, others Gastrointestinal: denies: abdomen distended, abdominal pain, blood streaked bowels, constipated, diarrhea, dysphagia, difficulty swallowing, hematemesis, melena, nausea, poor appetite, poor fluid intake, rectal bleeding, rectal pain, vomiting, others Genitourinary: reports: flank pain; denies: abnormal vagina bleeding, burning, dyspareunia, dysuria, frequency, hematuria, incontinence, pain, , vagina discharge, urgency, others Neurological: reports: fainting, tingling, others (numbness); denies: dizziness, headache, left sided numbness, left sided weakness, numbness, paresthesia, pre-existing deficit, right sided numbness, right sided weakness, seizure, speech problems, tremors, weakness Musculoskeletal: denies: back pain, gout, joint pain, joint swelling, muscle pain, muscle stiffness, neck pain, others Integumetry: denies: bruises, change in color, change in hair/nails, dryness, laceration, lesions, lumps, rash, wounds, others Allergic/Immunocompromised: denies: Difficulty Healing, Frequent Infections, Hives, Itching, others Hematologic/Lymphatic: denies: anemia, blood clots, easy bleeding, easy bruising, swollen glands, others Endocrine: denies: excessive hunger, excessive sweating, excessive thirst, excessive urination, flushing, intolerance to cold, intolerance to heat, unexplained weight gain, unexplained weight loss, others Psychiatric: denies: anxiety, bipolar disorder, depression, hopeless, panic dis order, schizophrenia, sleepless, suicidal, others All Other Systems: Reviewed and Negative Physical Exam General Appearance: No Apparent Distress, Other (pale appearing) HEENT: Normal ENT Inspection, Pharynx Normal Neck: Full Range of Motion, Non-Tender, Normal, Normal Inspection Respiratory: Chest Non-Tender, Lungs Clear, No Accessory Muscle Use, No Respiratory Distress, Normal Breath Sounds Cardiovascular: No Edema, No Murmur, No Gallop, Normal Peripheral Pulses, Regular Rate/Rhythm Breast Exam: Deferred Gastrointestinal: No Organomegaly, Non Tender, No Pulsatile Mass, Normal Bowel Sounds, Soft Genitalia: Deferred Pelvic: Deferred Rectal: Deferred Extremities: No calf tenderness, Normal capillary refill, Normal inspection, Normal range of motion, Non-tender, No pedal edema Musculoskeletal : Apperance: Normal Neurologic: Alert, 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 Was a procedure done?: No Differential Diagnosis Kidney stone (Female): Pyelonephritis Urinary Problem (Female): Urolithiasis, UTI X-Ray, Labs, Meds, VS Vital Signs Date Time Temp Pulse Resp B/P (MAP) Pulse Ox O2 Delivery O2 Flow Rate FiO2 02/25/25 17:46 66 18 114/73 (87) 99 02/25/25 14:23 98.7 94 18 137/79 99 98.7 Lab Test 02/25/25 18:29 02/25/25 17:34 Range/Units Troponin I High Sensitivity < 3 L 3 L </=34 ng/L White Blood Count 6.9 4.4-10.8 10^3/uL Red Blood Count 4.99 4.0-5.20 10^6/uL Hemoglobin 14.3 12.2-16.2 g/dL Hematocrit 42.2 # 36.0-46.0 % Mean Corpuscular Volume 84.6 80.0-100.0 fL Mean Corpuscular Hemoglobin 28.7 28.0-32.0 pg Mean Corpuscular Hemoglobin Concent 33.9 32.0-36.0 g/dL Red Cell Distribution Width 13.9 11.8-14.3 % Platelet Count 308 140-450 10^3/uL Mean Platelet Volume 7.9 6.9-10.8 fL Neutrophils (%) (Auto) 67.5 37.0-80.0 % Lymphocytes (%) (Auto) 26.7 10.0-50.0 % Monocytes (%) (Auto) 5.0 0.0-12.0 % Eosinophils (%) (Auto) 0.2 0.0-7.0 % Basophils (%) (Auto) 0.6 0.0-2.0 % Neutrophils # (Auto) 4.7 1.6-8.6 10 ^3/uL Lymphocytes # (Auto) 1.8 0.4-5.4 10 ^3/uL Monocytes # (Auto) 0.3 0-1.3 10 ^3/uL Eosinophils # (Auto) 0 0-0.8 10 ^3/uL Basophils # (Auto) 0 0-0.2 10 ^3/uL Nucleated Red Blood Cells 0.1 % Sodium Level 143 136-145 mmol/L Potassium Level 3.5 3.5-5.1 mmol/L Chloride Level 106 98-107 mmol/L Carbon Dioxide Level 25 20-31 mmol/L Anion Gap 12 5-15 Blood Urea Nitrogen 11 9-23 mg/dL Creatinine 0.77 0.550-1.02 mg/dL Glomerular Filtration Rate Calc 108 >90 mL/min BUN/Creatinine Ratio 14.3 10.0-20.0 Serum Glucose 80 74-106 mg/dL Calcium Level 9.4 8.7-10.4 mg/dL B-Type Natriuretic Peptide 15.77 0-100 pg/mL [address] [address] Ph: [phone] DIAGNOSTIC IMAGING Diagnostic Imaging Report : [id number] Signed PATIENT: FLACO RECINOS ACCT: [id number] UNIT: [id number] : 1995 LOC: ER ROOM / BED: / AGE / SEX: 29 / F ADM STATUS: REG ER SERVICE 16 ORDERING PHYSICIAN: SHERRY CUMMINGS MD PROCEDURE(s): CXRP - CHEST PORTABLE REASON: syncope ORDER NUMBER(s): [id number], ACCESSION NUMBER(s): [id number] EXAM: XY CHEST PORTABLE HISTORY: syncope TECHNIQUE: 1 view of the chest COMPARISON: None FINDINGS/IMPRESSION: LUNGS: No pleural effusion, consolidation, or pneumothorax. MEDIASTINUM: Unremarkable. BONES: No acute osseous abnormality. OTHER: None. ATED BY: AAYUSH LEIGH MD DICTATED DATE/TIME: 02/25/251711 SIGNED BY: AAYUSH LEIHG MD SIGNED DATE/TIME: 02/25/251711 CC: [address] [address] Ph: [phone] DIAGNOSTIC IMAGING Diagnostic Imaging Report : [id number] Signed PATIENT: FLACO RECINOS ACCT: [id number] UNIT: [id number] : 1995 LOC: ER ROOM / BED: / AGE / SEX: 29 / F ADM STATUS: REG ER SERVICE 1617 ORDERING PHYSICIAN: SHERRY CUMMINGS MD PROCEDURE(s): HWOCT - HEAD WITHOUT CONTRAST REASON: syncope ORDER NUMBER(s): [id number], ACCESSION NUMBER(s): [id number] EXAM: CT HEAD WITHOUT CONTRAST INDICATION: syncope TECHNIQUE: CT images of the head were obtained without administration of IV contrast. CT scans at this facility use dose modulation, iterative reconstruction, and/or weight based dosing when appropriate to reduce radiation dose to as low as reasonably achievable. COMPARISON: None FINDINGS: PARENCHYMA: No acute hemorrhage. There is no mass effect, midline shift, or herniation. There is preservation of the johnson white differentiation. Mild scattered hypoattenuation along the periventricular, centrum semiovale, and deep white matter tracts, which are nonspecific however statistically most likely represent chronic microvascular ischemic change. VENTRICLES: No hydrocephalus. EXTRA-AXIAL SPACES: No extra-axial fluid collections. OTHER: The bony structures are intact. Visualized portions of the paranasal sinuses and mastoid air cells are clear. IMPRESSION: 1. No CT evidence of an acute intracranial abnormality. ATED BY: AAYUSH LEIGH MD DICTATED DATE/TIME: 02/25/251710 SIGNED BY: AAYUSH LEIGH MD SIGNED DATE/TIME: 02/25/251710 CC: Time of 1ST Reevaluation: 16:30 Reevaluation 1ST: Unchanged Patient Education/Counseling: Diagnosis, Treatment Family Education/Counseling: No Family Present SEPSIS Sepsis Screen Date sepsis recognized/suspect: Feb 25, 2025 Time Sepsis recognized/suspect: 1427 Recent Procedure: No On Antibiotic Therapy: No Respiratory Rate >20: No Heart Rate >90: Yes Temp<36 C (96.8 F) or >38.3 C: No SBP <90 or MAP <65 mmHG: No New Acute Mental Status Change: No Is the patient on CPAP, BIPAP,: No Physician Orders Urinalysis (02/25/25 16:17) Chest Portable (02/25/25 16:17) Electrocardigram (02/25/25 16:17) Head Without Contrast (02/25/25 16:17) Troponin-I Hs (02/25/25 19:17) Electrocardigram (02/25/25 17:17) Electrocardigram (02/25/25 19:17) Vital Signs Date Time Temp Pulse Resp B/P (MAP) Pulse Ox O2 Delivery O2 Flow Rate FiO2 02/25/25 17:46 66 18 114/73 (87) 99 02/25/25 14:23 98.7 94 18 137/79 99 98.7 Laboratory Tests Test 02/25/25 17:34 White Blood Count 6.9 10^3/uL (4.4-10.8) Departure 1 Departure Time of Disposition: 19:19 (Patient presented with syncope today and should be admitted. Data: 1. I ordered and reviewed the result of at least 3 labs including a CBC, BMP, and troponin. 2. I independently interpreted the following tests: EKG which shows a normal sinus arrhythmia and a chest x-ray which shows benign chest _ and a CT head which shows benign brain.Risk:This patient has a high risk of morbidity due to further diagnostic testing or treatment and may suffer from an acute cardiac, neurologic, or infectious disorder. Rationale: Patient should be admitted to the hospital for further management.) Impression: Primary Impression: Syncope and collapse Disposition: ADMITTED INPATIENT Admit to: Tele Condition: Guarded Critical Care Note Critical Care Time?: Yes Critical care comment: Syncope and collapse Authorized and Performed by: Sherry Cummings MD Total critical care time: Approximately 39 minutes Due to a high probability of clinically significant, life threatening deterioration, the patient required my highest level of preparedness to intervene emergently and I personally spent this critical care time directly and personally managing the patient. This critical care time included obtaining a history; examining the patient; pulse oximetry; ordering and review of studies; arranging urgent treatment with development of a management plan; evaluation of patient's response to treatment; frequent reassessment; and, discussions with other providers. This critical care time was performed to assess and manage the high probability of imminent, life-threatening deterioration that could result in multi-organ failure. It was exclusive of separately billable procedures and treating other patients and teaching time. Please see my other sections and the rest of the note for further information on patient assessment and treatment. Stability Stability form required: No Heart Score Heart Score: Heart Score Response (Comments) Value History N/A 0 EKG N/A 0 Age N/A 0 Risk Factors N/A 0 Troponin N/A 0 Total 0 I personally scribed for SHERRY CUMMINGS MD ([email or web address]) on 02/25/25 at 16:04. Electronically submitted by Stefanie Martinez ([email or web address]). I personally scribed for SHERRY CUMMINGS MD ([email or web address]) on 02/25/25 at 16:32. Electronically submitted by Stefanie Martinez ([email or web address]). I personally scribed for SHERRY CUMMINGS MD ([email or web address]) on 02/25/25 at 17:54. Electronically submitted by Stefanie Martinez ([email or web address]). SHERRY CUMMINGS MD Feb 25, 2025 16:04
--- NOTE | 2025-02-25 17:13 | DVH ---
EXAM: CT HEAD WITHOUT CONTRAST INDICATION: syncope TECHNIQUE: CT images of the head were obtained without administration of IV contrast. CT scans at this facility use dose modulation, iterative reconstruction, and/or weight based dosing when appropriate to reduce radiation dose to as low as reasonably achievable. COMPARISON: None FINDINGS: PARENCHYMA: No acute hemorrhage. There is no mass effect, midline shift, or herniation. There is preservation of the johnson white differentiation. Mild scattered hypoattenuation along the periventricular, centrum semiovale, and deep white matter tracts, which are nonspecific however statistically most likely represent chronic microvascular ischemic change. VENTRICLES: No hydrocephalus. EXTRA-AXIAL SPACES: No extra-axial fluid collections. OTHER: The bony structures are intact. Visualized portions of the paranasal sinuses and mastoid air cells are clear. IMPRESSION: 1. No CT evidence of an acute intracranial abnormality.
--- NOTE | 2025-02-25 17:15 | DVH ---
EXAM: XY CHEST PORTABLE HISTORY: syncope TECHNIQUE: 1 view of the chest COMPARISON: None FINDINGS/IMPRESSION: LUNGS: No pleural effusion, consolidation, or pneumothorax. MEDIASTINUM: Unremarkable. BONES: No acute osseous abnormality. OTHER: None.
[2025-02-25 18:07] LABS: Hematocrit 42.2 % (36.0-46.0); Hemoglobin 14.3 g/dL (12.2-16.2); Mean Corpuscular Hemoglobin 28.7 pg (28.0-32.0); Mean Corpuscular Volume 84.6 fL (80.0-100.0); Nucleated Red Blood Cells % 0.1 %
[2025-02-25 18:14] LABS: Chloride 106 mmol/L (98-107); Sodium 143 mmol/L (136-145)
[2025-02-25 18:15] LABS: Anion Gap 12 (5-15); Calcium 9.4 mg/dL (8.7-10.4); Carbon Dioxide 25 mmol/L (20-31)
[2025-02-25 18:20] LABS: BUN/Creatinine Ratio 14.3 (10.0-20.0); Blood Urea Nitrogen 11 mg/dL (9-23); Glucose 80 mg/dL (74-106)
[2025-02-25 18:31] LABS: Potassium 3.5 mmol/L (3.5-5.1)
[2025-02-25] MEDS ORDERED: MORPHINE SULFATE INJ 2 MG/ml SYRG IV PRN (21:30)
[2025-02-25] MEDS ORDERED: NITROGLYCERIN 0.4 MG SL TAB SL PRN (21:30)
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
[2025-02-25] MEDS: ACETAMINOPHEN 325 MG TAB PO PRN (23:59)
[2025-02-26] VITALS (8 sets, daily range): BP systolic 97–113; BP diastolic 53–86; PULSE 55–101; RESP 14–19; TEMP 97.9–98.2; O2SAT 96–100
[2025-02-26 03:17] LABS: Hematocrit 43.9 % (36.0-46.0); Hemoglobin 14.9 g/dL (12.2-16.2); Mean Corpuscular Hemoglobin 28.5 pg (28.0-32.0); Mean Corpuscular Volume 84.0 fL (80.0-100.0); Nucleated Red Blood Cells % 0.1 %
[2025-02-26 04:00] LABS: Chloride 106 mmol/L (98-107); Potassium 3.8 mmol/L (3.5-5.1); Sodium 144 mmol/L (136-145)
[2025-02-26 04:01] LABS: Anion Gap 15 (5-15); Calcium 9.9 mg/dL (8.7-10.4); Carbon Dioxide 23 mmol/L (20-31)
[2025-02-26 04:06] LABS: BUN/Creatinine Ratio 20.8 (10.0-20.0); Blood Urea Nitrogen 15 mg/dL (9-23); Magnesium 2.3 mg/dL (1.6-2.6)
[2025-02-26 04:08] LABS: Creatine Kinase IFCC 48 U/L (34-145)
[2025-02-26 04:18] LABS: Glucose 73 mg/dL (74-106)
[2025-02-26] MEDS: PANTOPRAZOLE 40 MG TAB PO SCH (06:03)
[2025-02-26 06:51] LABS: Urine Protein, UAD Negative (Negative)
[2025-02-26 07:10] LABS: Amphetamine Screen, Urine Neg (NEGATIVE); Barbiturate Scree,Urine Neg (NEGATIVE); Benzodiazephine Screen, Urine Neg (NEGATIVE); Cannabinoid Screen, Urine Pos (NEGATIVE); Cocaine Screen, Urine Neg (NEGATIVE); Opiate Scree,Urine Neg (NEGATIVE); Phencyclidine Screen, Urine Neg (NEGATIVE)
[2025-02-26] MEDS ORDERED: LORazepam 2MG/ML-1ML VIAL IV PRN ×2 (09:00→10:45)
--- NOTE | 2025-02-26 09:49 | DVHINCON2 ---
Date of service: Feb 26, [address] Donnelly Reason for Consultation Seizure History of Present Illness Ms. Clemens is a 29 years old right-handed female with a history of prediabetes, kidney stone, UTI, she was just discharged from the [facility] on 01/25/2025, of the returned on 02/25/2025 with a chief company of flank pain, but she also has other complaints. At this time, she is alert and fully oriented, she provided the following history In the morning on 02/25/2025, when she was sitting and eating breakfast with her , she had back pain, which was not intense, and she took Tylenol 500 mg, following that, she developed tingling numbness in the feet and hands, the numbness/tingling in the hands spread paroxysmally till it reached the shoulders, which was followed by dizziness/lightheadedness, headache, hot flash feeling, palpitation, chest pain, increased sweating, nausea, and the next memory was waking up with EMS personnel around her, and she was confused for about 1 hour before she returned to baseline mentally. Her vitals, and glucose were normal. Her later her down when she was symptomatic. She had never had similar problems previously. No history of seizure disorder, stroke/TIA Since yesterday, she has tingling and numbness in the right 5th finger, which is a new symptom to her UDS, 02/26/2025: Cannabinoids Urinalysis, 02/26/2025: WBC: 1, urine leukocyte esterase: Negative CBC, 02/26/2025: Unremarkable BMP, 02/26/2025: Unremarkable Glucose, 02/25/2025: 80, 02/26/2025: 73 Liver function tests, 02/26/2025: Unremarkable Vitamin B12, 02/26/2025: 555 CT head, 02/25/2025: No CT evidence of an acute intracranial abnormality Past Medical History Prediabetes, kidney stone, UTI Past Surgical History Cholecystectomy Family History: Patient reports no known family medical history. Family History Diabetes, cancer, lupus Social History She uses marijuana. She denies a history of tobacco smoking, drug and alcohol abuse Allergies: Coded Allergies: Shellfish Allergy (Verified Allergy, Unknown, 02/22/25) Sumatriptan (Verified Allergy, Unknown, 02/22/25) Home Meds Active Scripts Ciprofloxacin Hcl (Cipro) 500 Mg Tab, 1 TAB PO BID, #14 TAB Prov:GARRETT MARTINEZ MD 02/24/25 Current Medications Current Medications Medications (Trade) Dose Ordered Sig/Nohemy Route PRN Reason Start Time Stop Time Status Last Admin Enoxaparin Sodium (Lovenox) 40 mg DAILY SC 02/26/25 10:00 Acetaminophen (Tylenol Tablet) 650 mg Q6HP PRN PO PAIN SCALE 1-3 OR TEMP>100.4 02/25/25 21:30 02/26/25 06:11 Nitroglycerin (Ntrostat Sublingual) 0.4 mg Q5MINP PRN SL FOR CHEST PAIN 02/25/25 21:30 Morphine Sulfate 2 mg Q30M PRN IV FOR CHEST PAIN 02/25/25 21:30 Pantoprazole Sodium (Protonix Tablet) 40 mg DAILY@0600 PO 02/26/25 06:00 02/26/25 06:03 Citalopram Hydrobromide (CeleXA TABLET) 20 mg DAILY PO 02/26/25 10:00 Levetiracetam 100 ml @ 400 mls/hr BID IV 02/26/25 10:00 Lorazepam (Ativan Inj) 1 mg Q5MINP PRN IV SEIZURES 02/26/25 09:00 Review of Systems As above, the other systems are negative Vital Signs Vital Signs Date Time Temp Pulse Resp B/P (MAP) Pulse Ox O2 Delivery O2 Flow Rate FiO2 02/26/25 09:04 85 18 96 Room Air* 0 21 02/26/25 08:00 98.3 99/56 (70) 98.3 Physical Exam GENERAL EXAM: General: the patient is well developed and nourished. No acute distress. HEENT: Normocephalic, neck is supple, no carotid bruits. No mass RESPIRATORY: Normal respiratory effort with symmetrical lung expansion. Lungs clear to auscultation. CARDIOVASCULAR: Regular rate and rhythm with no murmurs. S1, S2. ABDOMEN: Soft, nontender, normal bowel sound Typing in the medial aspect of the elbow caused fine about feeling in the medial aspect of the left elbow and paroxysmal portion of the medial aspect of the forearm NEUROLOGICAL: MENTAL STATUS: Awake and alert. Oriented to person, place, time and general circumstances. Able to give personal history. SPEECH, LANGUAGE, HIGHER CORTICAL FUNCTION: no aphasia or dysathria. CRANIAL NERVES: #2: Intact visual winter to confrontation. The optic discs were sharp. #3,4,6: Pupils are equal, round and reactive. EOMs full and conjugate. No nystagmus. #5: Facial sensation intact in all three divisions bilaterally. Mandibular strength intact. #7: Facial muscles symmetrical and strength intact. #8: Hearing grossly normal to voice. #9,10: Uvula and soft palate rise in the midline. Swallow and voice are normal. #11: Trapezius and sternomastoid strength intact bilaterally. #12: Tongue midline. No fasciculations or atrophy. SENSATION: Diminished pinprick and light touch in the right 5th finger, and some areas of the left neck MOTOR: Normal tone in the upper and lower extremity. Normal muscle bulk. No fasciculations. No abnormal movements or posturing. Muscle strength of the major groups in the upper extremities is 5/5. Muscle strength of the major groups in the lower extremities is 5/5. REFLEXES: Deep tendon reflexes normal and symmetrical. No pathological reflexes. CEREBELLAR/COORDINATION: Finger to nose and heel to [place] are normal bilaterally. GAIT/STATION: deferred. Labs/Diagnostic Data Labs Test 02/26/25 09:13 02/26/25 06:37 02/26/25 02:25 02/25/25 20:57 Range/Units Urine Color Light-yellow Yellow Urine Clarity Clear Clear Urine pH 6.0 5.0-9.0 Urine Specific [place] 1.014 1.001-1.035 Urine Protein Negative Negative Urine Ketones 3+ H Negative Urine Blood Negative Negative /uL Urine Nitrite Negative Negative Urine Bilirubin Negative Negative Urine Urobilinogen Normal Negative mg/dL Urine Leukocyte Esterase Negative Negative /uL Urine RBC 1 0 - 4 /hpf Urine Microscopic WBC 1 0-5 /HPF Urine Squamous Epithelial Cells Few <5 /hpf Urine Bacteria None seen None Seen /hpf Urine Glucose Normal Normal mg/dL Urine Opiates Screen Neg NEGATIVE Urine Fentanyl Screen Neg NEGATIVE Urine Barbiturates Screen Neg NEGATIVE Urine Phencyclidine Screen Neg NEGATIVE Urine Amphetamines Screen Neg NEGATIVE Urine Benzodiazepines Screen Neg NEGATIVE Urine Cocaine Screen Neg NEGATIVE Urine Cannabinoids Screen Pos NEGATIVE White Blood Count 6.6 4.4-10.8 10^3/uL Red Blood Count 5.23 H 4.0-5.20 10^6/uL Hemoglobin 14.9 12.2-16.2 g/dL Hematocrit 43.9 36.0-46.0 % Mean Corpuscular Volume 84.0 80.0-100.0 fL Mean Corpuscular Hemoglobin 28.5 28.0-32.0 pg Mean Corpuscular Hemoglobin Concent 33.9 32.0-36.0 g/dL Red Cell Distribution Width 13.8 11.8-14.3 % Platelet Count 327 140-450 10^3/uL Mean Platelet Volume 7.9 6.9-10.8 fL Neutrophils (%) (Auto) 53.7 37.0-80.0 % Lymphocytes (%) (Auto) 38.1 10.0-50.0 % Monocytes (%) (Auto) 6.3 0.0-12.0 % Eosinophils (%) (Auto) 1.4 0.0-7.0 % Basophils (%) (Auto) 0.5 0.0-2.0 % Neutrophils # (Auto) 3.5 1.6-8.6 10 ^3/uL Lymphocytes # (Auto) 2.5 0.4-5.4 10 ^3/uL Monocytes # (Auto) 0.4 0-1.3 10 ^3/uL Eosinophils # (Auto) 0.1 0-0.8 10 ^3/uL Basophils # (Auto) 0 0-0.2 10 ^3/uL Nucleated Red Blood Cells 0.1 % Sodium Level 144 136-145 mmol/L Potassium Level 3.8 3.5-5.1 mmol/L Chloride Level 106 98-107 mmol/L Carbon Dioxide Level 23 20-31 mmol/L Anion Gap 15 5-15 Blood Urea Nitrogen 15 9-23 mg/dL Creatinine 0.72 0.550-1.02 mg/dL Glomerular Filtration Rate Calc 117 >90 mL/min BUN/Creatinine Ratio 20.8 H 10.0-20.0 Serum Glucose 73 L 74-106 mg/dL Hemoglobin A1c 4.9 <5.7 % A1C Calcium Level 9.9 8.7-10.4 mg/dL Phosphorus Level 3.1 2.4-5.1 mg/dL Magnesium Level 2.3 1.6-2.6 mg/dL Creatine Kinase 48 34-145 U/L Vitamin B12 Level 555 211-911 pg/mL Vitamin D 25-Hydroxy 33.0 30.0-100 ng/mL Troponin I High Sensitivity 3 L </=34 ng/L Test 02/25/25 17:34 Range/Units B-Type Natriuretic Peptide 15.77 0-100 pg/mL Assessment Passing out ? Syncope ? TIA ? Partial complex seizure Paresthesia in the right 5th finger, rule out right ulnar mononeuropathy at the elbow Plan/Recommendation Monitoring Supportive treatment Telemetry EEG MR brain scan Syncopal precautions discussed Good hydration Avoid folding the arms Avoid resting the arms on any surface Cardiology evaluation Recommendation per clinical Progress: Poor This medical document was created using an electronic medical record system with [employer] dictation system. Although this document has been carefully reviewed, there may still be some phonetic and typographical errors. These areas are purely typographical due to imperfections of the software programs, and do not reflect any compromise in the patient's medical care. Plan discussed with: Patient, Other JEREMIAH RENEE MD Feb 26, 2025 09:49
[2025-02-26] MEDS: CITALOPRAM HYDROBR 20 MG TAB PO SCH (10:00)
[2025-02-26] MEDS: ENOXAPARIN SOD 40 MG/0.4 ML SYRINGE SC SCH (10:00)
[2025-02-26 10:06] LABS: INR 1.13 (0.9-1.15); Partial Thromboplastin Time 29.9 SEC (24.5-34.5); Prothrombin Time 11.8 sec (9.3-11.8)
[2025-02-26] MEDS: levETIRAcetam 500 mg/100ml 100 ML IV SCH (11:12)
--- NOTE | 2025-02-26 13:19 | DVH ---
CLINICAL INDICATION: Passing out COMPARISON: CT HEAD WITHOUT CONTRAST on DOS: 02/25/25 TECHNIQUE: Multisequence multiplanar MRI images of the brain were obtained without contrast. FINDINGS: No acute infarct or hemorrhage. No mass or midline shift. Ventricles and sulci are within normal limits. Basal cisterns are patent. Cerebellum, brainstem, and midline structures are within normal limits. Mild mucosal thickening of the paranasal sinuses. Small retention cyst versus polyp in the left maxillary sinus. Orbits are grossly unremarkable. IMPRESSION: No evidence of acute intracranial abnormality.
--- NOTE | 2025-02-26 14:04 | DVHPNRES ---
Progress Note Date Seen: Feb 26, 2025 Resident Creating Document: DIANE FRANCO RESDIENT Medical Necessity Reason Pt with a Central, PICC or Fol: No Subjective Review of Systems This is a 29-year-old female with past medical history of prediabetes, hypertension, asthma came to ER with complaint of sudden loss of consciousness during lunch associated with nausea, headache, blurry vision, sweating, palpitation. When patient regained her consciousness, found EMS bring her to hospital. As per patient, her was the witness who observed shaking movement of the body and patient passed out. This type of symptoms patient reported first time. Patient feeling numbness upper extremity especially dorsal surface of ulnar side. Patient had strong family history of seizure(mother and grandmother). Patient did not missed her breakfast, denies any kind of stress, new meds started recently. Denies fever, SOB, chest pain, abdominal pain, dysuria on any other distress. Patient discharged from hospital on 02/24/2025 with UTI and currently on oral antibiotic, patient history of brain bleed in 2012 due to hitting her head with roller coaster. On 02/26, the patient seen and examined at the bedside. Patient is feeling better since admission but still complaining of mild headache and dizziness. Objective vital signs Vital Sign Date Time Temp Pulse Resp B/P (MAP) Pulse Ox O2 Delivery O2 Flow Rate FiO2 02/26/25 14:01 98.0 02/26/25 13:00 55 18 103/67 (79) 100 02/26/25 09:04 Room Air* 0 21 medications Current Medications Medications Dose Ordered Sig/Nohemy Route Start Time Stop Time Status Last Admin Dose Admin Enoxaparin Sodium 40 mg DAILY SC 02/26/25 10:00 Acetaminophen 650 mg Q6HP PRN PO 02/25/25 21:30 02/26/25 14:01 650 MG Nitroglycerin 0.4 mg Q5MINP PRN SL 02/25/25 21:30 Morphine Sulfate 2 mg Q30M PRN IV 02/25/25 21:30 Pantoprazole Sodium 40 mg DAILY@0600 PO 02/26/25 06:00 02/26/25 06:03 40 MG Citalopram Hydrobromide 20 mg DAILY PO 02/26/25 10:00 Lorazepam 1 mg Q5MINP PRN IV 02/26/25 09:00 Lorazepam 1 mg ONCE PRN IV 02/26/25 10:45 Examination General Appearance: Alert, Oriented X3, Cooperative, No acute distress HEENT: Atraumatic, PERRLA, EOMI, Mucous membrane moist/pink Respiratory: Clear to auscultation, Normal air movement Cardiovascular: Regular rate, Normal S1, Normal S2, No murmurs, no chest wall tenderness Abdominal: Normal bowel sounds, Soft, No tenderness, No hepatospenomegaly, No masses Extremities: No clubbing, No cyanosis, No edema, Normal pulses, No tenderness/swelling Skin: No rashes, No breakdown, No significant lesion Neuro: Normal gait, Normal speech, Strength at 5/5 X4 ext, Normal tone, Sensation intact, Cranial nerves 3-12 NL, Reflexes 2+ Psych/Mental Status: Mental status NL, Mood NL laboratory and microbiology Laboratory Tests 02/26/25 02:25 Test 02/26/25 02:25 Range/Units Serum Glucose 73 L 74-106 mg/dL Labs and/or images reviewed: Labs reviewed by me, Image(s) reviewed by me Problem List/Assessment/Plan Problem List/Assessment/Plan Syncope, possibly cardiogenic/dehydration Possible seizure, tonic-clonic History of complicated urinary tract infection History of renal stone Prediabetes Asthma without exacerbation Substance use disorder Ruled out TIA * EKGs showed normal sinus rhythm with no significant ST or T-wave changes. * Head CT scan showed no significant intracranial abnormalities * Chest x-ray shows no significant intrathoracic abnormalities. Plan/recommendation: * Keppra * Consulted neurology, recommended brain MRI * IV fluid * Continue home meds, escitalopram * Pain management * Orthostatic vitals DIET: Regular diet DVT PROPHYLAXIS: Lovenox CODE STATUS: Goal of care discussed for more than 18 minutes, full code DISPOSITION: Telemetry Patient's status and plan discussed with the patient. Case discussed with Dr. Mendez. Plan discussed with: Patient, Other (RN) My Orders My Orders Orders - DIANE FRANCO RESDIENT Procedure Category Date Status Time * Neurology Consult CONS 02/26/25 Transmitted 08:51 Lorazepam 2mg/Ml Inj PHA 02/26/25 In Process (Ativan Inj) 09:00 Visit Coding STANDARD RES Billing Provider: BRIAN CALVIN MD Date of Service if different f: Feb 27, 2025 Common Visit Codes: [id number] INP/OBS CARE(HIGH) DIANE FRANCO RESJASON Feb 26, 2025 14:04
[2025-02-27 01:00] VITALS: BP 100/59; PULSE 61; RESP 17; TEMP 97.9; O2SAT 100
[2025-02-27 05:00] VITALS: BP 93/56; PULSE 62; RESP 16; TEMP 97.9; O2SAT 100
[2025-02-27 07:21] LABS: Hematocrit 43.8 % (36.0-46.0); Hemoglobin 14.6 g/dL (12.2-16.2); Mean Corpuscular Hemoglobin 28.7 pg (28.0-32.0); Mean Corpuscular Volume 86.3 fL (80.0-100.0); Nucleated Red Blood Cells % 0.3 %
[2025-02-27 07:35] LABS: Alanine Aminotransferase 18 U/L (7-40); Albumin 4.4 g/dL (3.2-4.8); Anion Gap 13 (5-15); BUN/Creatinine Ratio 16.4 (10.0-20.0); Blood Urea Nitrogen 11 mg/dL (9-23); Calcium 9.6 mg/dL (8.7-10.4); Carbon Dioxide 21 mmol/L (20-31); Potassium 4.3 mmol/L (3.5-5.1); Sodium 143 mmol/L (136-145); Total Protein 7.1 g/dL (5.7-8.2)
[2025-02-27 07:36] LABS: Bilirubin, Total 0.7 mg/dL (0.2-1.0)
[2025-02-27 07:37] LABS: Alkaline Phosphatase 42 U/L (46-116); Chloride 109 mmol/L (98-107); Glucose 74 mg/dL (74-106)
[2025-02-27 08:00] VITALS: PULSE 66; PULSE 71; RESP 20; O2SAT 100
[2025-02-27] MEDS: ONDANSETRON HCL 4 MG/2 ML VIAL IV PRN (08:30)
--- NOTE | 2025-02-27 10:25 | ECG ---
[facility] Test Date: 2025-02-26 Test Time: 11:16:45 Pat Name: FLACO RECINOS Department: Room: [facility]T B Gender: F Digital Marketing Associate: ASHELY : 1995 Requested By: SHERRY CUMMINGS Order Number: [id number] Reading MD: Román Mccoy Measurements Intervals [place] Rate: 54 P: 55 GA: 137 QRS: 85 QRSD: 84 T: 64 QT: 430 QTc: 408 Interpretive Statements Sinus rhythm Baseline wander in lead(s) III,aVL,V1,V2 Electronically Signed On 03-01-2025 19:21:59 PST by Román Mccoy Please click the below link to view image of tracing.
[2025-02-27] MEDS: SODIUM CHLORIDE 0.9% 500 ML IV ONE (10:40)
--- NOTE | 2025-02-27 12:58 | DVHDSRES ---
Discharge Summary Date of Admission Resident Creating Document: DIANE FRANCO RESDITRINI Feb 25, 2025 at 21:29 Date of Discharge: Feb 27, 2025 Labs/Diagnostic Data: Laboratory Results Test 02/27/25 06:03 02/26/25 09:13 02/26/25 06:37 02/26/25 02:25 White Blood Count 5.9 10^3/uL (4.4-10.8) Red Blood Count 5.07 10^6/uL (4.0-5.20) Hemoglobin 14.6 g/dL (12.2-16.2) Hematocrit 43.8 % (36.0-46.0) Mean Corpuscular Volume 86.3 fL (80.0-100.0) Mean Corpuscular Hemoglobin 28.7 pg (28.0-32.0) Mean Corpuscular Hemoglobin Concent 33.2 g/dL (32.0-36.0) Red Cell Distribution Width 14.3 % (11.8-14.3) Platelet Count 288 10^3/uL (140-450) Mean Platelet Volume 7.9 fL (6.9-10.8) Neutrophils (%) (Auto) 51.0 % (37.0-80.0) Lymphocytes (%) (Auto) 37.4 % (10.0-50.0) Monocytes (%) (Auto) 7.9 % (0.0-12.0) Eosinophils (%) (Auto) 2.8 % (0.0-7.0) Basophils (%) (Auto) 0.9 % (0.0-2.0) Neutrophils # (Auto) 3.0 10 ^3/uL (1.6-8.6) Lymphocytes # (Auto) 2.2 10 ^3/uL (0.4-5.4) Monocytes # (Auto) 0.5 10 ^3/uL (0-1.3) Eosinophils # (Auto) 0.2 10 ^3/uL (0-0.8) Basophils # (Auto) 0.1 10 ^3/uL (0-0.2) Nucleated Red Blood Cells 0.3 % Sodium Level 143 mmol/L (136-145) Potassium Level 4.3 mmol/L (3.5-5.1) Chloride Level 109 mmol/L (98-107) Carbon Dioxide Level 21 mmol/L (20-31) Anion Gap 13 (5-15) Blood Urea Nitrogen 11 mg/dL (9-23) Creatinine 0.67 mg/dL (0.550-1.02) Glomerular Filtration Rate Calc 122 mL/min (>90) BUN/Creatinine Ratio 16.4 (10.0-20.0) Serum Glucose 74 mg/dL (74-106) Calcium Level 9.6 mg/dL (8.7-10.4) Total Bilirubin 0.7 mg/dL (0.2-1.0) Aspartate Amino Transferase (AST) 22 U/L (13-40) Alanine Aminotransferase (ALT) 18 U/L (7-40) Alkaline Phosphatase 42 U/L (46-116) Total Protein 7.1 g/dL (5.7-8.2) Albumin 4.4 g/dL (3.2-4.8) Prothrombin Time 11.8 sec (9.3-11.8) Prothrombin Time INR 1.13 (0.9-1.15) Activated Partial Thromboplast Time 29.9 SEC (24.5-34.5) Thyroid Stimulating Hormone (TSH) 1.22 uIU/mL (0.55-4.78) Plasma/Serum Blood Alcohol < 3.0 mg/dL (<10) Urine Color Light-yellow (Yellow) Urine Clarity Clear (Clear) Urine pH 6.0 (5.0-9.0) Urine Specific [place] 1.014 (1.001-1.035) Urine Protein Negative (Negative) Urine Ketones 3+ (Negative) Urine Blood Negative /uL (Negative) Urine Nitrite Negative (Negative) Urine Bilirubin Negative (Negative) Urine Urobilinogen Normal mg/dL (Negative) Urine Leukocyte Esterase Negative /uL (Negative) Urine RBC 1 /hpf (0 - 4) Urine Microscopic WBC 1 /HPF (0-5) Urine Squamous Epithelial Cells Few /hpf (<5) Urine Bacteria None seen /hpf (None Seen) Urine Glucose Normal mg/dL (Normal) Urine Opiates Screen Neg (NEGATIVE) Urine Fentanyl Screen Neg (NEGATIVE) Urine Barbiturates Screen Neg (NEGATIVE) Urine Phencyclidine Screen Neg (NEGATIVE) Urine Amphetamines Screen Neg (NEGATIVE) Urine Benzodiazepines Screen Neg (NEGATIVE) Urine Cocaine Screen Neg (NEGATIVE) Urine Cannabinoids Screen Pos (NEGATIVE) Hemoglobin A1c 4.9 % A1C (<5.7) Phosphorus Level 3.1 mg/dL (2.4-5.1) Magnesium Level 2.3 mg/dL (1.6-2.6) Creatine Kinase 48 U/L (34-145) Vitamin B12 Level 555 pg/mL (211-911) Vitamin D 25-Hydroxy 33.0 ng/mL (30.0-100) Test 02/25/25 20:57 02/25/25 17:34 Troponin I High Sensitivity 3 ng/L (</=34) B-Type Natriuretic Peptide 15.77 pg/mL (0-100) Other Laboratory Tests 02/27/25 06:03 Brief Hx & Hospital Course: History of present illness: This is a 29-year-old female with past medical history of prediabetes, hypertension, asthma came to ER with complaint of sudden loss of consciousness during lunch associated with nausea, headache, blurry vision, sweating, palpitation. When patient regained her consciousness, found EMS bring her to hospital. As per patient, her was the witness who observed shaking movement of the body and patient passed out. This type of symptoms patient reported first time. Patient feeling numbness upper extremity especially dorsal surface of ulnar side. Patient had strong family history of seizure(mother and grandmother). Patient did not missed her breakfast, denies any kind of stress, new meds started recently. Denies fever, SOB, chest pain, abdominal pain, dysuria on any other distress. Patient discharged from hospital on 02/24/2025 with UTI and currently on oral antibiotic, patient history of brain bleed in 2012 due to hitting her head with roller coaster. Hospital course: Patient was admitted due to loss of consciousness. Per patient's family, the patient had a witnessed seizure (tonic-clonic). Upon hospital admission, the patient vitals were within normal limits, head CT scan performed, no significant intracranial abnormalities. EKG performed, showed sinus rhythm and no significant ST or T-wave changes. Neurology consulted, performed MRI of the brain, showed no significant finding. Subsequently Neurology recommended monitoring and outpatient basis follow up for further workup and possible medical management. Patient had history of UTI and recently was discharged with ciprofloxacin, the patient was also kept inpatient for monitoring of heart rate for possible ciprofloxacin side effects (QT prolongation and possible torsade de pointes). Patient was also reporting decreased oral intake recently and unintentional weight loss. During hospital course, home medication including citalopram was continued for the patient and the patient was given IV fluid, pain management, and Lovenox for DVT prophylaxis. On 02/27, the patient was feeling better since admission, patient's status discussed with the patient's and patient's at the bedside, and the patient discharged home. Discharge plan: Follow up with the PCP within 1 week of the discharge. Follow up with the Neurology, on outpatient basis. Follow up with Psychiatry on outpatient basis. Follow up with the discharge Clinic within 1 week of the discharge. Continue home meds Final diagnosis: Syncope, possibly cardiogenic and/or orthostatic Possible seizure, tonic-clonic IVVD History of complicated urinary tract infection History of renal stone Prediabetes Asthma without exacerbation Substance use disorder Ruled out TIA Condition at Discharge: Good Final Diagnosis/Problems List Syncope, possibly cardiogenic and/or orthostatic Possible seizure, tonic-clonic IVVD History of complicated urinary tract infection History of renal stone Prediabetes Asthma without exacerbation Substance use disorder Ruled out TIA Discharge Disposition: Home Discharge Instruct/Medications Diet: Regular Activity: No Restrictions, As Tolerated Follow Up/Referral: follow up with PCP within one week after discharge follow up with Discharge clinic within one week after discharge follow up with psychiatry on outpatient basis Medications: continue home meds Scheduled Ciprofloxacin Hcl (Cipro), 1 TAB PO BID Discharge Statement: "Patient was advised to return to the ER or call 911 if any headaches, dizziness, shortness of breath, chest pain, abdominal pain, bleeding, fevers, or worsening of medical condition. Patient was counseled about treatment plan, medications, possible side effects, patientverbalized understanding. All questions were answered to the best of my ability. This discharge took greater then 30 minutes in planning, reviewing documentation, counseling the patient, and discussing with other team members." ASSESSMENT ASSESSMENT Assessment Syncope, possible orthostatic Visit Coding STANDARD RES Billing Provider: BRIAN CALVIN MD Date of Service if different f: Feb 27, 2025 Common Visit Codes: 62578-JZU/OBS DISCH DAY >30min DIANE FRANCO RESDIENT Feb 27, 2025 12:57 BRIAN CALVIN MD Mar 02, 2025 09:59
--- NOTE | 2025-02-27 23:58 | DVHEEG2 ---
Neurology EEG Procedural Note Procedural Note EXAM DATE: 02/27/2025 REFERRING DOCTOR: Dr. Renee TECHNIQUE: Eighteen channels of EEG, 2 channels of EOG, and 1 channel of EKG were recorded using the International 10/20 system. CLINICAL DATA: The patient was referred for an EEG evaluation for the evidence of seizure disorder. MEDICATIONS: See the chart BACKGROUND ACTIVITY: While the patient was awake, the background activity consisted of well regulated 10-11Hz rhythmic waveforms, symmetrically distributed over both posterior quadrants and was reactive to eye opening. ACTIVATION: Hyperventilation: Not seen Photic Stimulation: No photic convulsive response Sleep: Not seen IMPRESSION: This is a normal EEG. No focal, lateralized, or epileptiform features are noted. If clinically indicated to rule out a seizure disorder, recommend repeat EEG with sleep deprivation. The EKG channel showed a regular heart rate of 54/min. [place] [address] JEREMIAH RENEE MD Feb 27, 2025 23:58
--- NOTE | 2025-02-28 17:19 | DVHSR ---
APPROVED REPORT EXAM: Two-dimensional and M-mode echocardiogram with Doppler and color Doppler. Blood Pressure: 93/56 mmHg INDICATION Syncope TIA RISK FACTORS Height: 5'4", Weight: 106 DIMENSIONS LVDd 4.5 (3.8-5.7cm) LA (2D) 2.9 (1.9-4.0cm) Aortic Root 2.6 (2.0-3.7cm) LVDs 2.9 (2.5-4.0cm) LA (MM) (1.9-4.0cm) Aortic Cusp Exc 1.8 (1.5-2.0cm) EF (%) 66.0 (55-70%) Rt. Atrium 3.4 (1.9-4.0cm) Asc. Aorta 2.8 cm IVSd 0.7 (0.7-1.1cm) RV (D) (1.8-2.4cm) PWd 0.7 (0.7-1.1cm) Mitral Valve Mitral Mitral Stenosis E wave 0.91m/s MV Mean GR. mmHg A wave 0.47m/s MV Peak GR. mmHg E/A ratio 1.9 2D MVA cm2 DECEL Time 163ms PRESS 1/2 Time ms Aortic Valve Aortic Valve Aortic Stenosis V1 0.99m/s AO Mean GR. mmHg V2 1.20m/s AO Peak GR. mmHg LVOT Diameter 2.0 (1.8-2.4cm) Doppler BAYLEE 2.59cm2 Pulmonic Valve V2 0.99m/s Other Information Quality : Technically Limited Rhythm : Technically limited study due to body habitus. Conclusion LVEF normal at 60-65%, RV normal size and function
== END 2025-02-27 15:15 | disposition home or self-care (01) | DRG 641 ==
LOC: ER 14:14 → EDBD 14:14 → OVERFLOW 21:29 → TELE-WESTW 02-26 17:40
PROVIDERS: ADMIT Student in an Organized Health Care Education/Training Program; ATTEND Student in an Organized Health Care Education/Training Program
DX: E86.0 Dehydration (principal); G40.409 Other generalized epilepsy and epileptic syndromes, not intractable, without status epilepticus; J45.909 Unspecified asthma, uncomplicated; R73.03 Prediabetes; Z79.2 Long term (current) use of antibiotics; Z90.49 Acquired absence of other specified parts of digestive tract; Z83.3 Family history of diabetes mellitus; Z87.440 Personal history of urinary (tract) infections; Z87.442 Personal history of urinary calculi; Z79.899 Other long term (current) drug therapy
CPT/HCPCS: 36415; 70450; 70551; 71045; 80048; 80053; 80307; 80320; 81001; 82306; 82550; 82607; 83036; 83735; 83880; 84100; 84443; 84484; 85025; 85610; 85730; 93005; 93306; 95819; 99291; G0378; J2405